=== PATIENT | male | born 1970 | race Caucasian/White ===

== ENCOUNTER 2021-09-29 01:11 | Day surgery (SDC) | payer BC, SELFPAY ==
--- NOTE | 2021-09-28 12:49 | P.PNAN_ITS ---
Anes - Initial Pre Proc Eval Procedure: Operation Date: 09/29/21 09:15 Proposed Procedures p Colonoscopy - Kvng Alvarez MD Date/Time: 09/28/21 12:49 Surgeon: Kvng Alvarez MD Pre Op Diagnosis: Rectal Bleeding Patient Data Age: 51 Gender: M Height: Weight: Allergies Allergy/AdvReac Type Severity Reaction Status Date / Time cephalexin Allergy Unknown Verified 08/10/10 08:16 ciprofloxacin Allergy Unknown Verified 08/10/10 08:15 Penicillins Allergy Unknown Vomiting Verified 06/05/17 15:02 tetracycline Allergy Unknown Verified 08/10/10 08:16 NKDA Allergy Mild Uncoded 11/21/02 17:54 NKFA Allergy Mild Uncoded 11/21/02 17:54 Home Medications Medication Instructions Recorded Confirmed Type amitriptyline 25 mg tablet 25 mg PO QHS #90 tabs 09/23/20 Rx hydrochlorothiazide 12.5 mg capsule 12.5 mg PO DAILY 08/24/21 History sodium sul 1.479 gram-potas ch See Rx Instructions PO PER PKG DIR 08/25/21 Rx 0.188 gram-magnes sul 0.225 gram #24 tabs tablet (Sutab) Patient hx anesthesia problems: none Family hx anesthesia problems: none Results Review: All pre-operative results and documents have been reviewed as part of the pre- operative evaluation. [facility] Past Medical History Medical History (Updated 09/28/21 @ 12:50 by William Walker MD) BMI 27.0-27.9,adult HTN (hypertension) Family History Family History Mother Family history of lung disease Father Patient's father is Acute myocardial infarction Other Family history of throat cancer Social History Social History Smoking status: Never smoker Alcohol intake: never Living arrangements: with family Anes - Eval Final PreProcedure Day of Procedure 09/28/21 12:49 Patient weight: overweight Heart: regular rate and rhythm Lungs: clear to auscultation and normal air movement Airway: Mallampati scale class II Neurological: alert and oriented Last oral intake: >/= 8 hours ASA classification: II Emergent: no Anesthetic plan: proceed Anesthesia type and monitoring: general GIVS Results Review: All pre-operative results and documents have been reviewed as part of the pre- operative evaluation. Informed Consent: The patient's anesthetic plan and its attendant risks and benefits were discussed with the patient/family/POA. Questions were solicited and answers provided to the satisfaction of the patient/family/POA.
[2021-09-29 07:58] VITALS: BP 115/93; PULSE 91; RESP 18; TEMP 36.6; O2SAT 99
[2021-09-29] MEDS: LACTATED RINGERS 1,000 ML 150 ML IV CONT (08:07)
--- NOTE | 2021-09-29 08:25 | P.HP_ITS ---
H&P: HPI History of Present Illness Date/Time: 09/29/21 08:25 Chief Complaint: Rectal bleeding Narrative: this is a 51-year-old white male patient presents for colonoscopy. Patient has intermittent bright red blood per rectum attributed to hemorrhoids. Previous colonoscopy has shown internal hemorrhoids. Patient reports this occurs intermittently. He denies significant pain. He is considering therapy for this. Past medical history is significant for irritable bowel syndrome. He is obtain fairly good response to amitriptyline 25mg at bedtime. Patient presents today for colonoscopy to assess rectal bleeding. Review of Systems Review of Systems: Review of systems noncontributory. [facility] Past Medical History Medical History (Updated 09/28/21 @ 12:50 by William Walker MD) BMI 27.0-27.9,adult HTN (hypertension) Family History Family History Mother Family history of lung disease Father Patient's father is Acute myocardial infarction Other Family history of throat cancer Social History Social History Smoking status: Never smoker Alcohol intake: never Living arrangements: with family Meds Home Medications and Allergies Home Medications Medication Instructions Recorded Confirmed Type amitriptyline 25 mg tablet 25 mg PO QHS #90 tabs 09/23/20 Rx hydrochlorothiazide 12.5 mg capsule 12.5 mg PO DAILY 08/24/21 History sodium sul 1.479 gram-potas ch See Rx Instructions PO PER PKG DIR 08/25/21 Rx 0.188 gram-magnes sul 0.225 gram #24 tabs tablet (Sutab) Allergies Allergy/AdvReac Type Severity Reaction Status Date / Time cephalexin Allergy Unknown Verified 08/10/10 08:16 ciprofloxacin Allergy Unknown Verified 08/10/10 08:15 Penicillins Allergy Unknown Vomiting Verified 06/05/17 15:02 tetracycline Allergy Unknown Verified 08/10/10 08:16 NKDA Allergy Mild Uncoded 11/21/02 17:54 NKFA Allergy Mild Uncoded 11/21/02 17:54 Vital Signs Vital Signs - 24 hr 09/29/21 07:58 Temperature 97.8 F Pulse Rate 91 Respiratory Rate 18 Blood Pressure 115/93 H Pulse Oximetry 99 Oxygen Delivery Room Air Exam Narrative: Physical exam reveals patient to be alert. Vital signs stable. HEENT exam is unremarkable. Patient is anicteric. Lungs are clear to auscultation and percussion. Heart is without murmur or extra sounds. Abdominal exam bowel sounds are present soft nontender with no organomegaly. Digital external rectal exam is normal. Assessment and Plan Assessment and plan (1) Rectal bleeding: Code(s): K62.5 - Hemorrhage of anus and rectum Status: Acute Assessment and Plan: Rectal bleeding identified. Plan is for colonoscopy to assess more thoroughly. High-fiber diet is advised. Patient does have a history of hemorrhoids suggesting this is most likely etiology. Consider hemorrhoid banding if this persist electively in the office.
[2021-09-29 09:36] VITALS: BP 105/75; PULSE 72; RESP 16; O2SAT 98
[2021-09-29 09:46] VITALS: BP 117/85; PULSE 75; RESP 17; O2SAT 99
[2021-09-29 09:56] VITALS: BP 119/87; PULSE 70; RESP 16; O2SAT 99
== END 2021-09-29 10:01 | disposition home or self-care (01) ==
PROVIDERS: Visit Provider Internal Medicine Gastroenterology
PROC: 0DJD8ZZ Inspection of Lower Intestinal Tract, Via Natural or Artificial Opening Endoscopic (ICD-10-PCS; CPT 45378; principal; 2021-09-29 09:15)
DX: K62.5 Hemorrhage of anus and rectum (principal); D12.2 Benign neoplasm of ascending colon; K64.8 Other hemorrhoids; I10 Essential (primary) hypertension
CPT/HCPCS: 45385; 88305; J2704; J7120

== ENCOUNTER 2024-09-04 08:00 | Outpatient (CLI) | payer BC, SELFPAY ==
--- NOTE | ~2024-09-04 | CT_ITS ---
CT of the Abdomen and Pelvis: Indication: Rectal hemorrhage Technique: 2.5 mm axial scans were obtained through the abdomen and pelvis following intravenous adm inistration of 100 cc of Omnipaque 350. Dose reduction technique was used on this scan by utilizing a utomated exposure control and iterative reconstruction technique. The dose-length product (DLP) was 7 22.86 mGy-cm. Findings: Scans through the lung bases are unremarkable. The liver, spleen, pancreas, gallbladder, adrenals and kidneys are within normal limits. No evidence of aortic aneurysm. No lymphadenopathy. No bowel obstruction or bowel wall thickening. There is no evidence to suggest acute appendicitis. Th ere is minimal haziness in the mesentery with shotty lymph nodes, compatible with mesenteric pannicul itis. Images through the pelvis were performed. Urinary bladder unremarkable. Prostate gland mildly enlarge d. No ascites. Impression: Mild mesenteric panniculitis. Mildly enlarged prostate gland. Reviewed, dictated and finalized at [facility]. Impression: Mild mesenteric panniculitis. Mildly enlarged prostate gland.
--- OUTSIDE RECORDS SUMMARY | 2024-09-04 08:05 | XMS_ITS | Clinical Summary ---
Author Organization [facility] ([place], [place]) Address [address] [place] [address] Care Team Providers Care Civil Cadd Technician Name Role Phone Willie Fox MD Unavailable [phone] Willie Savage DO Primary Care Provider + Allergies Active Allergy Reactions Criticality Noted Date Comments Penicillin V Stomach upset Low 05/23/2019 Penicillins Vomiting Low 06/18/2024 Tetracycline Stomach upset Low 05/23/2019 Medications amitriptyline (ELAVIL) 25 mg tablet Take 1 tablet (25 mg total) by mouth nightly 0 Active fluticasone propionate (FLONASE) 50 mcg/actuation nasal spray Administer 1 spray into affected nostril(s) daily 0 Active azelastine 205.5 mcg (0.15 %) spray,non-aeros ol 205.5 mcg 2 (two) times a day Active pantoprazole DR (PROTONIX) 40 mg EC tabletIndicatio ns:Laryngophary ngeal reflux (LPR) Take 1 tablet (40 mg total) by mouth 2 (two) times a day before breakfast and dinner 60 tablet 3 5 Active losartan (COZAAR) 25 mg tablet Take 1 tablet (25 mg total) by mouth daily 30 tablet 1 5 09/06/19 25 Active atorvastatin (LIPITOR) 40 mg tablet Take 1 tablet (40 mg total) by mouth daily 30 tablet 1 5 09/07/19 25 Active Active Problems Problem Noted Date Diagnosed Date Chest pain 07/07/2024 Hypertension 07/07/2024 Other forms of dyspnea 07/07/2024 Exercise-induced angina 06/18/2024 Laryngopharyngeal reflux (LPR) 06/15/2024 Wheezing 06/15/2024 Dizziness and giddiness 10/15/2019 Encounters Date Type Department Care Team Description 08/01/2024 6:51 AM CDT - 08/01/2024 11:59 PM CDT Hospital Encounter [facility] Respiratory Therapy [address] [place] [id number] Other forms of dyspnea Discharge Disposition: Discharge to home or self care 08/01/2024 6:51 AM CDT - 08/01/2024 11:59 PM CDT Hospital Encounter [facility] CT [address] [place] [address] Other forms of dyspnea Discharge Disposition: Discharge to home or self care 07/28/2024 8:45 AM CDT Office Visit [facility] Otolaryngology [address] [place] [address] Sudhir Bernardo II, MD Laryngopharyngeal reflux (LPR) (Primary Dx); Wheezing; Dizziness and giddiness 07/21/2024 Telephone [facility] Cardiology [address] [place] [address] [address] [place] [phone] Jamila Gutierrez MD 07/07/2024 10:45 AM CDT - 07/07/2024 11:40 AM CDT Surgery [facility] Cardiac Lathing Supervisor [address] [place] [id number] Jamila Gutierrez MD LEFT HEART CATHETERIZATION WITH CORONARY ANGIOGRAPHY AND WITH OR WITHOUT LEFT VENTRICULOGRAM [id number] 07/07/2024 12:44 AM CDT - 07/07/2024 3:16 PM CDT Hospital Encounter [facility] 5 Med Surg [address] [place] [address] Dallas Hernandez DO Winston, Clifton Braswell MD TelemaqueIftikhar MD Chest pain, unspecified type (Primary Dx); Hypertension, unspecified type Discharge Disposition: Discharge to home or self care 06/17/2024 Telephone [facility] Cardiology [address] [facility] [address] [place] [address] Denny Flores MD [facility] scheduling 06/12/2024 9:30 AM CDT Office Visit [facility] Otolaryngology [address] [place] [phone] Sudhir Bernardo II, MD Laryngopharyngeal reflux (LPR) (Primary Dx); Wheezing from Last 3 Months Surgical History Surgery Date Site/Laterality Comments TONSILLECTOMY CARDIAC CATHETERIZATION 07/07/2024 N/A Procedure: LEFT HEART CATHETERIZATION WITH CORONARY ANGIOGRAPHY AND WITH OR WITHOUT LEFT VENTRICULOGRAM [id number]; Surgeon: Jamila Gutierrez MD; 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; Service: Cardiovascular; Laterality: N/A; Medical History Medical History Date Comments Allergic rhinitis Hypertension Sinusitis IBS (irritable bowel syndrome) Laryngopharyngeal reflux Family History Medical History Relation Name Comments Heart disease Father Cancer Maternal Grandfather Cancer Maternal Grandmother Sarcoidosis Mother Cancer Other Relation Name Status Comments Father Maternal Grandfather Maternal Grandmother Mother Other Social History Tobacco Use Types Packs/Day Years Used Date Smoking Tobacco: Never Smokeless Tobacco: Never AUDIT-C Answer Date Recorded Q1: How often do you have a drink containing alcohol? Never 07/07/2024 Q2: How many drinks containi ng alcohol do you have on a typical day when you are drinking? Patient does not drink Q3: How often do you have si x or more drinks on one occasion? Never 07/07/2024 Personal Safety Answer Date Recorded Have you ever been in or are you currently in a harmful physical or emotional relationship or is someone making you feel afraid or unsafe? 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 Gender Identity Not on file Sexual Orientation Not on file Obstetrics History Last Filed Vital Signs Vital Sign Reading Time Taken Comments Blood Pressure 110/83 07/07/2024 12:15 PM CDT Pulse 70 07/07/2024 12:15 PM CDT Temperature 36.4 C (97.5 F) 07/07/2024 7:07 AM CDT Respiratory Rate 17 07/28/2024 8:38 AM CDT Oxygen Saturation 100% 07/07/2024 12:15 PM CDT Inhaled Oxygen Concentration - - Weight 97.5 kg (215 lb) 07/28/2024 8:38 AM CDT Height 182.9 cm (6') 07/28/2024 8:38 AM CDT Body Mass Index 29.16 07/28/2024 8:38 AM CDT Plan of Treatment Health Maintenance Due Date Last Done Comments Colon Cancer Screening-Colonoscopy 1972 Depression Screening 1972 Hepatitis C Screening 1972 Prostate Cancer Screening-PSA 1972 DTaP/Tdap/Td Vaccine (1 - Tdap) 09/25/1983 Hepatitis B Screening 1990 Regular Well Visit/Exam 18-64 1990 Zoster Vaccine (1 of 2) 2022 Influenza Vaccine (Season Ended) 2024 Pneumococcal vaccine <65 Aged Out No longer eligible based on patient's age to complete this topic Procedures Procedure Name Priority Date/Time Associated Diagnosis Comments PULMONARY FUNCTION TEST (PFT) Routine 08/01/2024 10:06 AM CDT Other forms of dyspnea CTA CHEST W CONTRAST Schedule Routine, Read Routine (OP Routine) 08/01/2024 7:15 AM CDT Other forms of dyspnea LEFT HEART CATHETERIZATION WITH CORONARY ANGIOGRAPHY AND WITH AND WITHOUT LEFT VENTRICULOGRAM Routine 07/07/2024 11:30 AM CDT Chest pain, unspecified type EGFR Routine 07/07/2024 8:57 AM CDT THYROID FUNCTION CASCADE Routine 07/07/2024 8:57 AM CDT LIPID PANEL Routine 07/07/2024 8:57 AM CDT HEMOGLOBIN A1C Routine 07/07/2024 8:57 AM CDT BASIC METABOLIC PANEL Routine 07/07/2024 8:57 AM CDT TROPONIN T HIGH-SENSITIVITY 6-HOUR Timed 07/07/2024 7:52 AM CDT TROPONIN T HIGH-SENSITIVITY 4-HR Timed 07/07/2024 4:13 AM CDT D-DIMER, QUANTITATIVE STAT 07/07/2024 2:18 AM CDT TROPONIN T HIGH-SENSITIVITY 2-HOUR Timed 07/07/2024 2:18 AM CDT XR CHEST 1 VIEW ED 07/07/2024 12:51 AM CDT EGFR STAT 07/07/2024 12:41 AM CDT DIFFERENTIAL AUTO STAT 07/07/2024 12:41 AM CDT TROPONIN T HIGH-SENSITIVITY SERIES (BASELINE, 2HR, 4HR, 6HR) STAT 07/07/2024 12:41 AM CDT COMPREHENSIVE METABOLIC PANEL STAT 07/07/2024 12:41 AM CDT CBC WITH AUTO DIFFERENTIAL STAT 07/07/2024 12:41 AM CDT ECG 12-LEAD STAT 07/07/2024 12:36 AM CDT from Last 3 Months Results * (ABNORMAL) Pulmonary Function Test - (08/01/2024 10:06 AM CDT) FVC PRE 4.21 4.11 - 6.46 L [facility] FEV1 PRE 3.80 3.20 - 5.00 L [facility] [id number]-VYG 90.44(A) 67.42 - 87.93 % [facility] SOM53-36% PRE 5.48 1.95 - 5.88 L/s [facility] PEF PRE 11.58(A) 7.20 - 11.18 L/s [facility] DLCOc SB 22.60(A) 25.69 - 39.54 ml/(min*mm Hg) [facility] DLCO/VA PRE 3.88 3.19 - 5.47 ml/(min*mm Hg*L) [facility] VA 5.83(A) 7.38 - 7.38 L [facility] TLC PRE 5.85(A) 6.38 - 8.68 L [facility] VC PRE 4.31 4.16 - 6.00 L [facility] IC PRE 3.24(A) 3.72 - 3.72 L [facility] FRC PL PRE 2.61(A) 2.66 - 4.64 L [facility] ERV PRE 1.08(A) 1.36 - 1.36 L [facility] RV PRE 1.53(A) 1.61 - 2.96 L [facility] VTG 2.74 L [facility] RAW PRE 1.17(A) 3.06 - 3.06 cmH2O*s/L [facility] Anatomical Region Laterality Modality PFT 08/01/2024 7:50 AM CDT Narrative 08/01/2024 11:28 AM CDT The study showed good patient effort, acceptable and reproducible. Spirometry showed no airflow limitation. Flow volume loops showed unremarkable study. Lung volume showed mild restrictive defect. ERV was reduced secondary to overweight. Diffusion was mildly reduced indicating mild ventilation/perfusion mismatch. DLCO/VA was within normal limit. Oxygen saturation was 94% on room air. No previous data to compare, clinical correlation is recommended. Electronically signed, Jamie Can MD,FCCP, [facility] Pulmonary, Critical Care and Sleep Medicine us Willie Wei'Neill DO PFT ORDERABLES Final Re sult * CTA Chest W Contrast (08/01/2024 7:15 AM CDT) Anatomical Region Laterality Modality Chest N/A Computed Tomogra phy 08/11/2024 7:23 AM CDT Narrative 08/11/2024 7:27 AM CDT EXAM DESCRIPTION: CTA CHEST W CONTRAST REASON FOR STUDY: DYSPNEA ON EXERTION SOB for 3 mo. upon exertion. Pt reports he had pneumonia 5 mo ago. No sx hx to chest TECHNIQUE: CTA scan of the chest performed without and with intravenous contrast using helical scanning technique with dynamic intravenous contrast injection. Precontrast and arterial phase images of the chest were acquired. Reconstructed coronal and sagittal MPR images reviewed. 3D MIP images rendered on scanning unit and reviewed at time of interpretation. All images stored on PACS. Automated exposure control was used as a dose optimization technique for this examination. CONTRAST TYPE/DOSE: 100mL of IOVERSOL 350 MG IODINE/ML INTRAVENOUS SYRINGE injected via intravenous COMPARISON: None. REFERENCE: Per ACR white paper recommendations, unless otherwise specified no follow-up imaging is recommended for incidental renal and adrenal lesions per consensus recommendations based on imaging criteria. Further lab evaluation could be pursued based on clinical findings. FINDINGS: VASCULATURE: No filling defects within the pulmonary arterial system. There is motion artifact on the examination. The thoracic aorta is nonaneurysmal. There is motion artifact limiting assessment. No evidence of thoracic aortic dissection. There is a three-vessel aortic arch. LUNGS: Central airways are patent. No suspicious pulmonary nodule. There is no focal consolidation or mass. PLEURA: No pleural effusion or pneumothorax. MEDIASTINUM/TOMASZ: No mediastinal or hilar mass. HEART: Heart size normal. No pericardial effusion. AXILLA: There are few small axillary lymph nodes, these are not pathologically enlarged. As an example in the right axilla 1.2 x 0.7 cm (image 43). CHEST WALL: No chest wall mass or subcutaneous emphysema. HARDWARE/LINES/TUBES: None. UPPER ABDOMEN: In the included upper abdomen, few low-density renal lesions, mid right kidney 2.3 cm 10 Hounsfield units, left kidney 2.3 cm and 6 Hounsfield units. Spleen mildly enlarged 13.4 cm. MUSCULOSKELETAL: Bone windows demonstrate no acute or aggressive osseous abnormality. OTHER: No other significant abnormality. IMPRESSION: No evidence of an acute pulmonary embolism or acute cardiopulmonary abnormality. Mild splenomegaly. Low-density renal lesions most likely cysts. THIS IS AN ELECTRONICALLY VERIFIED FINAL REPORT 08/11/2024 7:27 AM - Electronically signed by Zac Bell M.D. CH: JOSÉ MIGUEL Report ID: [id number] Reading Location: [place] [address] Procedure Note Zac Bell Jr., MD - 08/11/2024 EXAM DESCRIPTION: CTA CHEST W CONTRAST REASON FOR STUDY: DYSPNEA ON EXERTION SOB for 3 mo. upon exertion. Pt reports he had pneumonia 5 mo ago. No sxhx to chest TECHNIQUE: CTA scan of the chest performed without and with intravenous contrast using helical scanning technique with dynamic intravenouscontrast injection. Precontrast and arterial phase images of the chest were acquired. Reconstructed coronal and sagittal MPR images reviewed.3D MIP images rendered on scanning unit and reviewed at time ofinterpretation. All images stored on PACS. Automated exposure control was used as a dose optimization technique for this examination. CONTRAST TYPE/DOSE: 100mL of IOVERSOL 350 MG IODINE/ML INTRAVENOUSSYRINGE injected via intravenous COMPARISON: None. REFERENCE: Per ACR white paper recommendations, unless otherwise specifiedno follow-up imaging is recommended for incidental renal and adrenal lesionsper consensus recommendations based on imaging criteria. Further labevaluation could be pursued based on clinical findings. FINDINGS: VASCULATURE: No filling defects within the pulmonary arterial system. There is motion artifact on the examination. The thoracic aortais nonaneurysmal. There is motion artifact limiting assessment. No evidenceof thoracic aortic dissection. There is a three-vessel aortic arch. LUNGS: Central airways are patent. No suspicious pulmonary nodule.There is no focal consolidation or mass. PLEURA: No pleural effusion or pneumothorax. MEDIASTINUM/TOMASZ: No mediastinal or hilar mass. HEART: Heart size normal. No pericardial effusion. AXILLA: There are few small axillary lymph nodes, these are not pathologically enlarged. As an example in the right axilla 1.2 x 0.7 cm (image 43). CHEST WALL: No chest wall mass or subcutaneous emphysema. HARDWARE/LINES/TUBES: None. UPPER ABDOMEN: In the included upper abdomen, few low-density renallesions, mid right kidney 2.3 cm 10 Hounsfield units, left kidney 2.3 cm and 6 Hounsfield units. Spleen mildly enlarged 13.4 cm. MUSCULOSKELETAL: Bone windows demonstrate no acute or aggressive osseous abnormality. OTHER: No other significant abnormality. IMPRESSION: No evidence of an acute pulmonary embolism or acute cardiopulmonary abnormality. Mild splenomegaly. Low-density renal lesions most likely cysts. THIS IS AN ELECTRONICALLY VERIFIED FINAL REPORT 08/11/2024 7:27 AM - Electronically signed by Zac Bell M.D. CH: JOSÉ MIGUEL Report ID: [id number] Reading Location: [place] [address] us Willie Wei'Neill DO IMG CT PROCEDURES Final Result * LEFT HEART CATHETERIZATION WITH CORONARY ANGIOGRAPHY AND WITH AND WITHOUT LEFT VENTRICULOGRAM (07/07/2024 11:30 AM CDT) Anatomical Region Laterality Modality X-Ray Angiograph y Narrative 07/07/2024 11:57 AM CDT Attending: Dr. Pierce Gutierrez MD Indication: Chest pain, elevated risk for CAD Procedure(s): 1. Left heart catheterization 2. Coronary angiography 3. Moderate sedation, 9 min 4. Ultrasound guided Needle Access Consent obtained: YES Timeout: done; correct procedure, patient and site of access. Drug allergies noted. Sedation Sedation was administered under my supervision and RN Range/Harbour in the room with continuous monitoring of patient's vital signs, airway and hemodynamic. Moderate sedation was done using 1 mg versed and 25 mcg fentanyl. Sedation start time 1116and sedation end time 1125 Sedation was tolerated very well by the patient and at the end of the procedure patient was conscious. Access: Site: Right Radial artery Technique: Modified Sildenger technique Sheath size: 5/4 F Glidesheath Coronary angiography: Catheters were advanced over wire under fluoroscopy for selective coronary angiography. Wire was removed and catheter was flushed with saline. Coronary angiogram was recorded in different projections. Catheters removed and sheath flushed. Following catheter used for coronary angiograms: 4F JR/JL Hemodynamic findings: LVEDP: 11 mmHg Arterial pressure: 105/79 mmHg No gradient across AV Angiographic findings: 1. Left main: Bifurcates into LAD and LCX. There was no angiographic significant disease 2. LAD: Normal anatomic course, gives to diagonal branches. There was no angiographic significant disease. 3. LCX: Normal anatomic course, gives to OM branches. There was no angiographic significant disease. 4. RCA: Normal anatomic course, gives to PDA and PLV branches. There was no angiographic significant disease. Dominance: Right Conclusion: No obstructive CAD to explain chest pain, or angina Low-normal LVEDP Closure: closure with wrist compression device Immediate post procedure access site: no hematoma, and distal pulse is unchanged Complications: None Estimated blood loss: minimal Recommendation #. Investigate alternative etiologies of chest pain/noncardiac syndrome # IVF per protocol #. TR band per protocol #. Follow-up in Cardiology clinic The results of procedure were discussed with patient, family, primary hospitalist/referring physician. All questions answered. us Jamila Gutierrez MD CV CARDIAC CATH ME OCEDURES Final Result * eGFR (07/07/2024 8:57 AM CDT) eGFR 62 >=60 mL/min/1. 73 m2 Comment: Interpretive Data Reference Interval Normal >/= 90 mL/min/1.73m2 Mildly decreased* 60 - 89 mL/min/1.73m2 Mildly to moderately decreased 45 - 59 mL/min/1.73m2 Moderately to severely decreased 30 - 44 mL/min/1.73m2 Severely decreased 15 - 29 mL/min/1.73m2 Kidney Failure < 15 mL/min/1.73m2 *Relative to young adult level Estimated glomerular filtration rate is determined by the 2020 CKD-EPI equation recommended by the National Kidney Foundation (A Unifying Approach to GFR Estimation: Recommendations of the NKF-ASK Task Force on Reassessing the Inclusion of Race in Diagnosing Kidney Disease, JASN 2020). The CKD-EPI equation should not be used for patients with unstable renal function and has not been validated in children and those over 70. Current interpretive data was last reviewed 2021. Testing performed by: [facility], [address] [place] [address]., [address] Blood 07/07/2024 8:57 AM CDT 07/07/2024 9:29 AM CDT Iftikhar Fuentes MD LAB BLOOD ORDERABLES Final Result [facility] [address] [facility] [place] [address] * Thyroid Function [place] (07/07/2024 8:57 AM CDT) TSH 3.56 0.30 - 4.20 mcIUnit/mL Comment:Testing performed by : [address] [address] Blood 07/07/2024 8:57 AM CDT 07/07/2024 9:29 AM CDT Iftikhar Fuentes MD LAB BLOOD ORDERABLES Final Result Performing Organization Address City/[facility]/ZIP Co de Phone Number [facility] [address] [place] [address] * (ABNORMAL) Hemoglobin A1c (07/07/2024 8:57 AM CDT) [facility] Hgb A1C 5.8(H) 4.0 - 5.6 % Comment:Testing performed by : [address] [address] Estimated Average Glucose 120 mg/dL [facility] Comment: The ADA recommends reporting an estimated Average Glucose (eAG) with all Hemoglobin A1c results using the equation derived from a study of 507 normal and diabetic adults. Minority populations were underrepresented and children were not included. (Diabetes Care 31:3058-6317, 2008). The eAG is not equivalent to a fasting glucose. Testing performed by: [address] [address] Blood 07/07/2024 8:57 AM CDT 07/07/2024 9:29 AM CDT Iftikhar Fuentes MD LAB BLOOD ORDERABLES Final Result [place] [id number] [facility] [place] [address] * (ABNORMAL) Lipid panel (07/07/2024 8:57 AM CDT) Pathologist [facility] Cholesterol 212(H) 30 - 199 mg/dL Comment: Interpretive Data Ages < or = 19 years Acceptable: <170 mg/dL Borderline high: 170-199 mg/dL High: >or= 200 mg/dL Ages > or = 20 years Desirable: <200 mg/dL Borderline high: 200-239 mg/dL High: >or= 240 mg/dL Literature References: 1. Expert Panel on Integrated Guidelines for Cardiovascular Health and Risk Reduction in Children and Adolescents. Pediatrics 2011;128:S213 2. NCEP Expert Panel. Circulation 2004;110:227 Current Interpretive Data was last revised on 2017. Testing performed by: [address] [address] Triglycerides 200(H) <=149 mg/dL [facility] Comment: Interpretive Data Ages < or = 9 years Acceptable: <75 mg/dL Borderline high: 75-99 mg/dL High: >or= 100 mg/dL Ages 10 to 20 years Acceptable: <90 mg/dL Borderline high: 90-129 mg/dL High: >or= 130 mg/dL Ages > or = 20 years Desirable: <150 mg/dL Borderline high: 150-199 mg/dL High: 200-499 mg/dL Very high: >or= 499 mg/dL Literature References: 1. Expert Panel on Integrated Guidelines for Cardiovascular Health and Risk Reduction in Children and Adolescents. Pediatrics 2011;128:S213 2. NCEP Expert Panel. Circulation 2004;110:227 Current Interpretive Data was last revised on 2017. Testing performed by: [address] [address] HDL 39(L) >=40 mg/dL [facility] Comment: Interpretive Data Ages < or = 19 years Acceptable: >45 mg/dL Borderline low: 40-45 mg/dL Low: <40 mg/dL Ages > or = 20 years Desirable: >or= 60 mg/dL Low: <40 mg/dL Literature References: 1. Expert Panel on Integrated Guidelines for Cardiovascular Health and Risk Reduction in Children and Adolescents. Pediatrics 2011;128:S213 2. NCEP Expert Panel. Circulation 2004;110:227 Current Interpretive Data was last revised on 2017. Testing performed by: [address] [address] LDL, calculated 137(H) <=129 mg/dL [facility] Comment: Interpretive Data Ages < or = 19 years Acceptable: <110 mg/dL Borderline high: 110-129 mg/dL High: >or= 130 mg/dL Ages > or = 20 years Optimal: <100 mg/dL Near optimal: 100-129 mg/dL Borderline high: 130-159 mg/dL High: >160 mg/dL Calculated using the Skyler LDL-C estimating equation. This equation was implemented on 2023. Prior to this date LDL-C was estimated using the Friedewald equation. Literature References: 1. Expert Panel on Integrated Guidelines for Cardiovascular Health and Risk Reduction in Children and Adolescents. Pediatrics 2011;128:S213 2. NCEP Expert Panel. Circulation 2004;110:227 3. Skyler Tineo et al. BINU Cardiol. 2020 July 17;5(5):540-548. doi: 10.1001/jamacardio.2020.0013 Current Interpretive Data was last revised on 2023. Testing performed by: [address] [address] Non-HDL Cholesterol 173 mg/dL [facility] Comment: Interpretive Data Ages < or = 19 years Acceptable: <120 mg/dL Borderline high: 120-144 mg/dL High: >145 mg/dL Ages > or = 20 years When triglycerides are >200 mg/dL, Non-HDL cholesterol is a secondary target of therapy with treatment goals that are 30 mg/dL greater than the LDL cholesterol target. Literature References: 1. Expert Panel on Integrated Guidelines for Cardiovascular Health and Risk Reduction in Children and Adolescents. Pediatrics 2011;128:S213 2. NCEP Expert Panel. Circulation 2004;110:227 Current Interpretive Data was last revised on 2017. Testing performed by: [address] [address] Chol/HDL ratio 5 [facility] Comment:Testing performed by : [address] [address] Blood 07/07/2024 8:57 AM CDT 07/07/2024 9:29 AM CDT Iftikhar Fuentes MD LAB BLOOD ORDERABLES Final Result [facility] [address] [facility] Department [place] [address] * (ABNORMAL) Basic metabolic panel (07/07/2024 8:57 AM CDT) Sodium 140 135 - 145 mmol/L Comment:Testing performed by : [address] [address] Potassium, pl 4.5 3.3 - 4.9 mmol/L [facility] Comment: Hemolyzed; Potassium value may be falsely elevated by as much as 1.0 mmol/L. Suggest redraw and reanalysis. Testing performed by: [address] [address] Chloride 102 97 - 110 mmol/L [facility] Comment:Testing performed by : [address] [address] CO2 28 22 - 32 mmol/L [facility] Comment:Testing performed by : [address] [address] Anion gap 10 2 - 15 mmol/L [facility] Comment:Testing performed by : [address] [address] BUN 20 6 - 25 mg/dL [facility] Comment:Testing performed by : [address] [address] Creatinine 1.37(H) 0.80 - 1.30 mg/dL [facility] Comment:Testing performed by : [address] [address] Glucose 98 70 - 199 mg/dL [facility] Comment: Interpretive Data Fasting glucose >/= 126 mg/dl is diagnostic for diabetes. Fasting is defined as no caloric intake for at least 8 hours. Fasting glucose between 100 mg/dl to 125 mg/dl is diagnostic of prediabetes. In a patient with classic symptoms of hyperglycemia or hyperglycemic crisis, a random glucose >/= 200 mg/dl is diagnostic for diabetes. In the absence of unequivocal hyperglycemia, results should be confirmed by repeat testing. The classification and Diagnosis of Diabetes Diabetes Care 202; 46: S19-S40. Current interpretive data was last revised 2022. Testing performed by: [facility], [address] [place] [address]., [address] Calcium 9.7 8.5 - 10.3 mg/dL ROSENDO Comment:Testing performed by : [address] [address] Blood 07/07/2024 8:57 AM CDT 07/07/2024 9:29 AM CDT Iftikhar Fuentes MD LAB BLOOD ORDERABLES Final Result Performing Organization Address [facility] de Phone Number ROSENDO [address] [facility] [place] [address] * Troponin T high-sensitivity 6-hour (07/07/2024 7:52 AM CDT) Trop T hs <6 <=22 ng/L Comment: Interpretive Data For further hscTnT resources including the diagnostic algorithm and an aid in interpretation, copy and paste this link: https://nrl.testcatalog.org/show/hsTrop Current Interpretive Data last revised 2020. Testing performed by: [address] [address] Trop T hs delta See Comment ng/L ROSENDO COTA Comment: Inappropriate collection time to report a delta. Testing performed by: [address] [address] Trop T hs pct delta See Comment % ROSENDO Comment: Inappropriate collection time to report a delta. Testing performed by: [address] [address] Trop T hs interp See Comment ROSENDO Comment: Inappropriate collection time to report a delta. Testing performed by: [address] [address] Blood 07/07/2024 7:52 AM CDT 07/07/2024 9:29 AM CDT us Dallas Hernandez DO LAB BLOOD ORDERABLES Final Res ult Performing Organization Address City/[facility] Co de Phone Number ROSENDO [address] [facility] [place] [address] * Troponin T high-sensitivity 4-hour (07/07/2024 4:13 AM CDT) Trop T hs <6 <=22 ng/L Comment: Interpretive Data For further hscTnT resources including the diagnostic algorithm and an aid in interpretation, copy and paste this link: [email or web address].[employer]org/show/hsTrop Current Interpretive Data last revised 2020. Testing performed by: [address] [address] Trop T hs delta 0 ng/L ROSENDO COTA Comment:Testing performed by : [address] [address] Trop T hs interp Insignificant ROSENDO Comment:Testing performed by : [address] [address] Blood 07/07/2024 4:13 AM CDT 07/07/2024 4:26 AM CDT us Dallas Hernandez DO LAB BLOOD ORDERABLES Final Res ult ROSENDO [facility] [place] [address] * Troponin T high-sensitivity 2-hour (07/07/2024 2:18 AM CDT) Trop T hs <6 <=22 ng/L Comment: Interpretive Data For further hscTnT resources including the diagnostic algorithm and an aid in interpretation, copy and paste this link: https://nrl.[employer]org/show/hsTrop Current Interpretive Data last revised 2020. Testing performed by: [address] [address] Trop T hs delta 0 ng/L ROSENDO COTA Comment:Testing performed by : [address] [address] Trop T hs interp Insignificant ROSENDO Comment:Testing performed by : [address] [address] Blood 07/07/2024 2:18 AM CDT 07/07/2024 2:22 AM CDT Dallas Hernandez Convore LAB BLOOD ORDERABLES Final Res ult Performing Organization Address [facility] Co de Phone Number ROSENDO [address] [place] [address] * D-dimer, quantitative (07/07/2024 2:18 AM CDT) D-Dimer <270 <=499 ng/mL FEU Comment: Interpretive data FDA approved the D-dimer, in conjunction with a low or moderate pretest probability score, to exclude venous thromboembolic events (VTE) (PE and DVT) in outpatients when the D-dimer result is < 500 ng/ml FEU. Evidence supports using an age-adjusted D-dimer cut-off for outpatients older than 50 (age x 10) to improve specificity without sacrificing sensitivity. Example: age 68, VTE cut-off 680 ng/ml FEU. References; Schoutshreyas HT et al. Brit Med J. 2013;346:f2492. Kimi et al. Annals Int Med. 2015;163:701-11. Current interpretive data was last revised on 2019. Testing performed by: [address] [address] Blood 07/07/2024 2:18 AM CDT 07/07/2024 2:22 AM CDT Dallas Cenzickimo DO LAB BLOOD ORDERABLES Final Res ult Performing Organization Address City/[facility]/ZIP Co de Phone Number ROSENDO [address] [place] [address] * XR Chest 1 Vw Portable (if patient condition/safety warrant portable) (07/07/2024 12:51 AM CDT) Anatomical Region Laterality Modality Body, Chest N/A Computed Radiogr aphy 07/07/2024 1:11 AM CDT Narrative 07/07/2024 1:11 AM CDT EXAM DESCRIPTION: XR CHEST 1 VIEW REASON FOR STUDY: chest pain Pt ambulates to triage with c/o left sided chest pain radiating into left arm and up into left jaw and neck with sob, dizziness and sweating. Pt had recent echo, scheduled for heart cath Sunday. 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 Pt states his father was 53 and grandfather was 49 [place]. TECHNIQUE: 1 radiographic view(s) of the chest. COMPARISON: None FINDINGS: LUNGS: No focal opacity, pleural effusion, or pneumothorax. HEART/MEDIASTINUM: Cardiac silhouette normal in size. Mediastinal and hilar contours appear normal. LINES/TUBES: None. BONES: No acute osseous abnormality. IMPRESSION: No acute cardiopulmonary abnormality. THIS IS AN ELECTRONICALLY VERIFIED FINAL REPORT 07/07/2024 1:11 AM - Electronically signed by Taran Manzo M.D. KT: HOLGER Report ID: [id number] Reading Location: [id number] Procedure Note Taran Manzo MD - 07/07/2024 EXAM DESCRIPTION: XR CHEST 1 VIEW REASON FOR STUDY: chest pain Pt ambulates to triage with c/o left sided chest pain radiating into leftarm and up into left jaw and neck with sob, dizziness and sweating. Pt hadrecent echo, scheduled for heart cath Sunday. 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 Pt states his father was 53 and grandfather was 49 when of [place]. TECHNIQUE: 1 radiographic view(s) of the chest. COMPARISON: None FINDINGS: LUNGS: No focal opacity, pleural effusion, or pneumothorax. HEART/MEDIASTINUM: Cardiac silhouette normal in size. Mediastinal andhilar contours appear normal. LINES/TUBES: None. BONES: No acute osseous abnormality. IMPRESSION: No acute cardiopulmonary abnormality. THIS IS AN ELECTRONICALLY VERIFIED FINAL REPORT 07/07/2024 1:11 AM - Electronically signed by Taran Manzo M.D. KT: HOLGER Report ID: [id number] Reading Location: [id number] us Dallas Hernandez DO IMG XR PROCEDURES Final Result * Troponin T high-sensitivity series (baseline, 2hr, 4hr, 6hr) (07/07/2024 12:41 AM CDT) Trop T hs <6 <=22 ng/L Comment: Interpretive Data For further hscTnT resources including the diagnostic algorithm and an aid in interpretation, copy and paste this link: https://nrl.testcatalog.org/show/hsTrop Current Interpretive Data last revised 2020. Testing performed by: [facility], [address] [place] [address]., [address] Blood 07/07/2024 12:4 1 AM CDT 07/07/2024 1:04 AM CDT Dallas Hernandez DO LAB BLOOD ORDERABLES Final Res ult ROSENDO [address] [facility] [place] [address] * (ABNORMAL) eGFR (07/07/2024 12:41 AM CDT) eGFR 58(L) >=60 mL/min/1. 73 m2 Comment: Interpretive Data Reference Interval Normal >/= 90 mL/min/1.73m2 Mildly decreased* 60 - 89 mL/min/1.73m2 Mildly to moderately decreased 45 - 59 mL/min/1.73m2 Moderately to severely decreased 30 - 44 mL/min/1.73m2 Severely decreased 15 - 29 mL/min/1.73m2 Kidney Failure < 15 mL/min/1.73m2 *Relative to young adult level Estimated glomerular filtration rate is determined by the 2020 CKD-EPI equation recommended by the National Kidney Foundation (A Unifying Approach to GFR Estimation: Recommendations of the NKF-ASK Task Force on Reassessing the Inclusion of Race in Diagnosing Kidney Disease, JASN 2020). The CKD-EPI equation should not be used for patients with unstable renal function and has not been validated in children and those over 70. Current interpretive data was last reviewed 2021. Testing performed by: [address] [address] Blood 07/07/2024 12:4 1 AM CDT 07/07/2024 1:04 AM CDT us Dallas Hernandez DO LAB BLOOD ORDERABLES Final Res ult [facility] [address] [facility] [place] [address] * (ABNORMAL) Differential, auto (07/07/2024 12:41 AM CDT) Neutrophil abs 4.39 1.50 - 6.50 K/cumm Comment:Testing performed by : [address] [address] Imm gran abs 0.02 0.00 - 0.10 K/cumm ROSENDO Comment:Testing performed by : [address] [address] Lymphocyte abs 3.36(H) 0.80 - 3.30 K/cumm ROSENDO Comment:Testing performed by : [address] [address] Monocyte abs 0.70 0.20 - 0.80 K/cumm ROSENDO Comment:Testing performed by : [address] [address] Eosinophil abs 0.19 0.00 - 0.50 K/cumm ROSENDO Comment:Testing performed by : [address] [address] Basophil abs 0.09 0.00 - 0.10 K/cumm ROSENDO Comment:Testing performed by : [address] [address] Neutrophil pct 50.2 % ROSENDO Comment: Interpretive Data Percent cell count reference ranges are not reported, since discordance with absolute values may lead to misinterpretation of CBC data. Current Interpretive Data was last revised on 2017. Testing performed by: [address] [address] Imm gran pct 0.2 % [facility] Comment: Interpretive Data Percent cell count reference ranges are not reported, since discordance with absolute values may lead to misinterpretation of CBC data. Current Interpretive Data was last revised on 2017. Testing performed by: [address] [address] Lymphocyte pct 38.4 % [facility] Comment: Interpretive Data Percent cell count reference ranges are not reported, since discordance with absolute values may lead to misinterpretation of CBC data. Current Interpretive Data was last revised on 2017. Testing performed by: [address] [address] Monocyte pct 8.0 % [facility] Comment: Interpretive Data Percent cell count reference ranges are not reported, since discordance with absolute values may lead to misinterpretation of CBC data. Current Interpretive Data was last revised on 2017. Testing performed by: [address] [address] Eosinophil pct 2.2 % [facility] Comment: Interpretive Data Percent cell count reference ranges are not reported, since discordance with absolute values may lead to misinterpretation of CBC data. Current Interpretive Data was last revised on 2017. Testing performed by: [address] [address] Basophil pct 1.0 % [facility] Comment: Interpretive Data Percent cell count reference ranges are not reported, since discordance with absolute values may lead to misinterpretation of CBC data. Current Interpretive Data was last revised on 2017. Testing performed by: [address] [address] Blood 07/07/2024 12:4 1 AM CDT 07/07/2024 1:04 AM CDT us Dallas Hernandez DO LAB BLOOD ORDERABLES Final Res ult ROSENDO [address] [facility] [place] [address] * (ABNORMAL) CBC with auto differential (07/07/2024 12:41 AM CDT) [facility] WBC 8.75 3.80 - 9.90 K/cumm Comment:Testing performed by : [address], [address] Hgb 13.6 13.0 - 17.5 g/dL ROSENDO Comment:Testing performed by : [address], [address] Hct 42.3 38.9 - 50.3 % ROSENDO Comment:Testing performed by : [address], [address] Plt 359 150 - 400 K/cumm ROSENDO Comment:Testing performed by : [address], [address] MPV 11.3 9.1 - 12.3 fL ROSENDO Comment:Testing performed by : [address], [address] RBC 4.92 4.30 - 5.80 M/cumm ROSENDO Comment:Testing performed by : [address], [address] MCV 86.0 81.3 - 96.4 fL ROS[facility]O Comment:Testing performed by : [address], [address] MCH 27.6 27.1 - 33.3 pg ROSENDO Comment:Testing performed by : [address], [address] MCHC 32.2(L) 32.3 - 35.7 g/dL ROSENDO Comment:Testing performed by : [address], [address] RDW CV 13.1 11.1 - 14.9 % ROSENDO Comment:Testing performed by : [address], [address] RDW SD 39.9 35.7 - 48.1 fL ROSENDO Comment:Testing performed by : [address], [address] NRBC abs 0.00 0.00 - 0.01 K/cumm ROSENDO Comment:Testing performed by : [address] [address] Blood Venous blood specimen / Unknown 07/07/2024 12:41 AM CDT 07/07/2024 1:04 AM CDT us Dallas Mary LYONS LAB BLOOD ORDERABLES Final Res ult ROS[facility]O [address] [facility] [place] [address] * (ABNORMAL) Comprehensive metabolic panel (07/07/2024 12:41 AM CDT) Sodium 140 135 - 145 mmol/L Comment:Testing performed by : [address] [address] Potassium, pl 3.7 3.3 - 4.9 mmol/L ROSENDO Comment:Testing performed by : [address] [address] Chloride 101 97 - 110 mmol/L ROSENDO Comment:Testing performed by : [address] [address] CO2 30 22 - 32 mmol/L ROSENDO Comment:Testing performed by : [address] [address] Anion gap 9 2 - 15 mmol/L ROS[facility]O Comment:Testing performed by : [address] [address] BUN 18 6 - 25 mg/dL ROS[facility]O Comment:Testing performed by : [address] [address] Creatinine 1.45(H) 0.80 - 1.30 mg/dL ROS[facility]O Comment:Testing performed by : [address] [address] Glucose 114 70 - 199 mg/dL ROSENDO Comment: Interpretive Data Fasting glucose >/= 126 mg/dl is diagnostic for diabetes. Fasting is defined as no caloric intake for at least 8 hours. Fasting glucose between 100 mg/dl to 125 mg/dl is diagnostic of prediabetes. In a patient with classic symptoms of hyperglycemia or hyperglycemic crisis, a random glucose >/= 200 mg/dl is diagnostic for diabetes. In the absence of unequivocal hyperglycemia, results should be confirmed by repeat testing. The classification and Diagnosis of Diabetes Diabetes Care 202; 46: S19-S40. Current interpretive data was last revised 2022. Testing performed by: [facility], [address] [place] [address]., [address] Calcium 9.7 8.5 - 10.3 mg/dL ROSENDO Comment:Testing performed by : [address] [address] Bilirubin, total 0.3 0.1 - 1.2 mg/dL ROSENDO Comment:Testing performed by : [address] [address] Protein, pl 7.6 6.5 - 8.5 g/dL ROS[facility]O Comment:Testing performed by : [address] [address] Albumin 4.5 3.5 - 5.0 g/dL RSOENDO Comment:Testing performed by : [address] [address] Alk phos 100 40 - 130 Units/L ROS[facility]O Comment:Testing performed by : [address] [address] ALT 27 7 - 55 Units/L ROS[facility]O Comment:Testing performed by : [address] [address] AST 27 10 - 50 Units/L [facility]:Testing performed by : [address] [address] Blood 07/07/2024 12:4 1 AM CDT 07/07/2024 1:04 AM CDT us Dallsa Hernandez DO LAB BLOOD ORDERABLES Final Res ult ROSENDO COTA [address] [facility] [place] [address] * ECG 12 lead (07/07/2024 12:36 AM CDT) Ventricular Rate EKG/Min 75 BPM [facility] Atrial Rate 75 BPM [facility] ME-Interval (MSEC) 160 ms [facility] QRS-Interval (MSEC) 92 ms [facility] QT-Interval (MSEC) 378 ms [facility] QTc 422 ms [facility] P [place] 23 degrees [facility] R [place] -20 degrees [facility] T [place] 17 degrees [facility] Diagnosis Normal sinus rhythm Normal ECG No previous ECGs available Confirmed by SULTAN TRAN M.D. ([id number]) on 07/07/2024 2:50:23 PM [facility] 07/07/2024 12:3 6 AM CDT 07/07/2024 2:50 PM CDT Dallas Hernandez DO ECG ORDERABLES Final Result [facility] from Last 3 Months [place] [employer] [place] [employer] [place] [facility] Advance Directives For more information, please contact: [phone] * Full Code (Latest Code Status on File) Date Activated Date Inactivated Comments 07/07/2024 2:29 PM 07/07/2024 7:16 PM * Full Code Date Activated Date Inactivated Comments 07/07/2024 4:58 AM 07/07/2024 2:29 PM Care Teams Civil Cadd Technician Relationship Specialty Start Date End Date Willie Savage DO [address] [address] PCP - General Family Medicine 07/14/24 Willie Fox MD [address] [place] [address] Family Medicine 06/26/24
--- OUTSIDE RECORDS SUMMARY | 2024-09-04 08:05 | XMS_ITS | Referral Summary ---
Author Organization [facility] Address [address] [place] [address] Care Team Providers Care Rcis Name Role Phone Willie Fox MD Unavailable [phone] Willie Savage DO Primary Care Provider + Encounters Date Type Department Care Team Description 08/01/2024 6:51 AM CDT - 08/01/2024 11:59 PM CDT Hospital Encounter [facility] [place] [address] [place] [address] Other forms of dyspnea Discharge Disposition: Discharge to home or self care 08/01/2024 6:51 AM CDT - 08/01/2024 11:59 PM CDT Hospital Encounter [facility] Respiratory Therapy [address] [place] [address] Other forms of dyspnea Discharge Disposition: Discharge to home or self care 07/28/2024 8:45 AM CDT Office Visit [facility] Otolaryngology [address] [place] [address] Sudhir Bernardo II, MD Laryngopharyngeal reflux (LPR) (Primary Dx); Wheezing; Dizziness and giddiness 07/21/2024 Telephone [facility] Cardiology [address] [facility] [address] [place] [address] Jamila Gutierrez MD 07/07/2024 10:45 AM CDT - 07/07/2024 11:40 AM CDT Surgery [facility] 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 [address] [place] [id number] Jamila Gutierrez MD LEFT HEART CATHETERIZATION WITH CORONARY ANGIOGRAPHY AND WITH OR WITHOUT LEFT VENTRICULOGRAM [id number] 07/07/2024 12:44 AM CDT - 07/07/2024 3:16 PM CDT Hospital Encounter [facility] [address] [place] [address] Dallas Hernandez DO Winston, Jared Todd, MD Telemaque, Iftikhar Jensen MD Chest pain, unspecified type (Primary Dx); Hypertension, unspecified type Discharge Disposition: Discharge to home or self care 06/17/2024 Telephone [facility] Cardiology [address] [place] [address] [address] [place] [address] Denny Flores MD [facility] scheduling 06/12/2024 9:30 AM CDT Office Visit [facility] Otolaryngology [address] [place] [address] Sudhir Bernardo II, MD Laryngopharyngeal reflux (LPR) (Primary Dx); Wheezing from Last 3 Months Allergies Active Allergy Reactions Criticality Noted Date [...] before breakfast and dinner 60 tablet 3 Active losartan (COZAAR) 25 mg tablet Take 1 tablet (25 mg total) by mouth daily 30 tablet 1 5 09/06/19 Active atorvastatin (LIPITOR) 40 mg tablet Take 1 tablet (40 mg total) by mouth daily 30 tablet 1 5 09/07/19 25 Active Active Problems Problem Noted Date Diagnosed Date Chest pain 07/07/2024 Hypertension 07/07/2024 Other forms of dyspnea 07/07/2024 Exercise-induced angina 06/18/2024 Laryngopharyngeal reflux (LPR) 06/15/2024 Wheezing 06/15/2024 Dizziness and giddiness 10/15/2019 Social History Tobacco Use Types Packs/Day Years [...] on file 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 Gender Identity Not on file Sexual Orientation Not on file Last Filed Vital Signs Vital Sign Reading [...] 07/28/2024 8:38 AM CDT Plan of Treatment Not on file Procedures Procedure Name Priority Date/Time Associated Diagnosis [...] FVC PRE 4.21 4.11 - 6.46 L [facility] FEV1 PRE 3.80 3.20 - 5.00 L [facility] [id number] 90.44(A) 67.42 - 87.93 % [facility] TRB18-12% PRE 5.48 1.95 - 5.88 L/s [facility] PEF PRE 11.58(A) 7.20 - 11.18 L/s [facility] DLCOc SB 22.60(A) 25.69 - 39.54 ml/(min*mm Hg) [facility] DLCO/VA PRE 3.88 3.19 - 5.47 ml/(min*mm Hg*L) [facility] VA 5.83(A) 7.38 - 7.38 L [facility] TLC PRE 5.85(A) 6.38 - 8.68 L [facility] VC PRE 4.31 4.16 - 6.00 L [facility] IC PRE 3.24(A) 3.72 - 3.72 L [facility] FRC PL PRE 2.61(A) 2.66 - 4.64 L [facility] ERV PRE 1.08(A) 1.36 - 1.36 L [facility] RV PRE 1.53(A) 1.61 - 2.96 L [facility] VTG 2.74 L [facility] RAW PRE 1.17(A) 3.06 - 3.06 cmH2O*s/L [facility] Anatomical Region Laterality Modality PFT 08/01/2024 7:50 [...] correlation is recommended. Electronically signed, Jamie Can MD,[facility] Pulmonary, Critical Care and Sleep Medicine us Willie Turpindaniel Wei[place] DO PFT ORDERABLES Final Re sult * [...] Electronically signed by Zac Bell M.D. CH: Report ID: [id number] Reading Location: [id number] Procedure Note Zac Bell Jr., MD - [...] Bell M.D. CH: JOSÉ MIGUEL Report ID: [id number] Reading Location: [place] [address] Willie Savage DO IMG CT PROCEDURES Final Result * [...] Modified Sildenger technique Sheath size: 5/4 F Glidesaloomath Coronary angiography: Catheters were advanced over wire [...] us Jamila Gutierrez MD CV CARDIAC CATH FL OCEDURES Final Result * eGFR (07/07/2024 8:57 [...] was last reviewed 2021. Testing performed by: [address] [address] Blood 07/07/2024 8:57 AM CDT 07/07/2024 9:29 AM CDT Iftikhar Fuentes MD LAB BLOOD ORDERABLES Final Result Performing Organization Address City/[facility]/ZIP Co de Phone Number [place] [address] [facility] [place] [employer] [place] [address] * Thyroid Function [place] (07/07/2024 8:57 AM CDT) TSH 3.56 0.30 - 4.20 mcIUnit/mL Comment:Testing performed by : [address] [address] Blood 07/07/2024 8:57 AM CDT 07/07/2024 9:29 AM CDT Iftikhar Fuentes MD LAB BLOOD ORDERABLES Final Result [place] 829[address] [facility] [employer] [place] [address] * (ABNORMAL) Hemoglobin A1c (07/07/2024 8:57 AM CDT) Hgb A1C 5.8(H) 4.0 - 5.6 % Comment:Testing performed by : [address] [address] Estimated Average Glucose 120 mg/dL [facility] Comment: The ADA recommends reporting an estimated Average Glucose (eAG) with all Hemoglobin A1c results using the equation derived from a study of 507 normal and diabetic adults. Minority populations were underrepresented and children were not included. (Diabetes Care 31:3556-2348, 2008). The eAG is not equivalent to a fasting glucose. Testing performed by: [facility], [address] [place] [address]., [address] Blood 07/07/2024 8:57 AM CDT 07/07/2024 9:29 AM CDT us Iftikhar Fuentes MD LAB BLOOD ORDERABLES Final Result [facility] [address] [facility] [place] [address] * (ABNORMAL) Lipid panel (07/07/2024 8:57 AM CDT) Cholesterol 212(H) 30 - 199 mg/dL Comment: [...] last revised on 2017. Testing performed by: [facility], [address] [place] [address]., [address] Triglycerides 200(H) <=149 mg/dL [facility] Comment: Interpretive Data Ages < or = [...] last revised on 2017. Testing performed by: [address] [address] HDL 39(L) >=40 mg/dL [facility] Comment: Interpretive [...] last revised on 2017. Testing performed by: [address] [address] LDL, calculated 137(H) <=129 mg/dL [facility] Comment: [...] last revised on 2023. Testing performed by: [address] [address] Non-HDL Cholesterol 173 mg/dL [facility] Comment: Interpretive [...] last revised on 2017. Testing performed by: [address] [address] Chol/HDL ratio 5 [facility] Comment:Testing performed by : [address] [address] Blood 07/07/2024 8:57 AM CDT 07/07/2024 9:29 AM CDT Iftikhar Fuentes MD LAB BLOOD ORDERABLES Final Result [facility] [address]67 [facility] Department [place] [address] * (ABNORMAL) Basic metabolic panel (07/07/2024 8:57 AM CDT) Sodium 140 135 - 145 mmol/L Comment:Testing performed by : [address] [address] Potassium, pl 4.5 3.3 - 4.9 mmol/L [facility] Comment: Hemolyzed; Potassium value may be falsely elevated by as much as 1.0 mmol/L. Suggest redraw and reanalysis. Testing performed by: [address] [address] Chloride 102 97 - 110 mmol/L [facility] Comment:Testing performed by : [address] [address] CO2 28 22 - 32 mmol/L [facility] Comment:Testing performed by : [address] [address] Anion gap 10 2 - 15 mmol/L [facility] Comment:Testing performed by : [address] [address] BUN 20 6 - 25 mg/dL [facility] Comment:Testing performed by : [address] [address] Creatinine 1.37(H) 0.80 - 1.30 mg/dL [facility] Comment:Testing performed by : [address] [address] Glucose 98 70 - 199 mg/dL [facility] [...] was last revised 2022. Testing performed by: [address] [address] Calcium 9.7 8.5 - 10.3 mg/dL [facility] Comment:Testing performed by : [address] [address] Blood 07/07/2024 8:57 AM CDT 07/07/2024 9:29 AM CDT us Iftikhar Fuentes MD LAB BLOOD ORDERABLES Final Result [facility] [address] [facility] Department [place] [address] * Troponin T high-sensitivity 6-hour (07/07/2024 7:52 AM CDT) Trop T hs <6 <=22 ng/L Comment: Interpretive Data For further hscTnT resources including the diagnostic algorithm and an aid in interpretation, copy and paste this link: https://nrl.testcatalog.org/show/hsTrop Current Interpretive Data last revised 2020. Testing performed by: [address] [address] Trop T hs delta See Comment ng/L [facility] Comment: Inappropriate collection time to report a delta. Testing performed by: [address] [address] Trop T hs pct delta See Comment % [facility] Comment: Inappropriate collection time to report a delta. Testing performed by: [address] [address] Trop T hs interp See Comment [facility] OCTA Comment: Inappropriate collection time to report a delta. Testing performed by: [address] [address] Blood 07/07/2024 7:52 AM CDT 07/07/2024 9:29 AM CDT us Dallas Hernandez DO LAB BLOOD ORDERABLES Final Res ult [facility] [address] [facility] [place] [address] * Troponin T high-sensitivity 4-hour (07/07/2024 4:13 AM CDT) Trop T hs <6 <=22 ng/L Comment: Interpretive Data For further hscTnT resources including the diagnostic algorithm and an aid in interpretation, copy and paste this link: https://nrl.testcatalog.org/show/hsTrop Current Interpretive Data last revised 2020. Testing performed by: [address] [address] Trop T hs delta 0 ng/L [facility] Comment:Testing performed by : [address] [address] Trop T hs interp Insignificant [facility] Comment:Testing performed by : [address] [address] Blood 07/07/2024 4:13 AM CDT 07/07/2024 4:26 AM CDT Dallas Hernandez DO LAB BLOOD ORDERABLES Final Res ult Performing Organization Address [facility] Co de Phone Number [facility] [place] [employer] [place] [address] * Troponin T high-sensitivity 2-hour (07/07/2024 2:18 AM CDT) Trop T hs <6 <=22 ng/L Comment: Interpretive Data For further hscTnT resources including the diagnostic algorithm and an aid in interpretation, copy and paste this link: https://nrl.testcatalog.org/show/hsTrop Current Interpretive Data last revised 2020. Testing performed by: [address] [address] Trop T hs delta 0 ng/L [facility] Comment:Testing performed by : [address] [address] Trop T hs interp Insignificant [facility] Comment:Testing performed by : [address] [address] Blood 07/07/2024 2:18 AM CDT 07/07/2024 2:22 AM CDT Dallas Hernandez DO LAB BLOOD ORDERABLES Final Res ult Performing Organization Address [facility] Co de Phone Number [facility] [place] [place] [address] * D-dimer, quantitative (07/07/2024 2:18 AM CDT) [...] 68, VTE cut-off 680 ng/ml FEU. References; Schouten HT et al. Brit Med J. 2013;346:f2492. Kimi et al. Annals Int Med. 2015;163:701-11. Current interpretive data was last revised on 2019. Testing performed by: [facility], [address] [place] [address], [place]., [address] Blood 07/07/2024 2:18 AM CDT 07/07/2024 2:22 AM CDT us Dallas Mary DO LAB BLOOD ORDERABLES Final Res ult [facility] [address] [facility] Department [place] [address] * XR Chest 1 Vw Portable (if [...] recent echo, scheduled for heart cath Sunday. 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 Pt states his father was 53 and grandfather was 49 when of [place]. TECHNIQUE: 1 radiographic view(s) of the chest. COMPARISON: None FINDINGS: LUNGS: No focal opacity, pleural effusion, or pneumothorax. HEART/MEDIASTINUM: Cardiac silhouette normal in size. Mediastinal and hilar contours appear normal. LINES/TUBES: None. BONES: No acute osseous abnormality. IMPRESSION: No acute cardiopulmonary abnormality. THIS IS AN ELECTRONICALLY VERIFIED FINAL REPORT 07/07/2024 1:11 AM - Electronically signed by Taran Manzo M.D. KT: HOLGER Report ID: [id number] Reading Location: [id number] Procedure Note Taran Manzo MD - 07/07/2024 EXAM DESCRIPTION: XR CHEST 1 VIEW REASON FOR STUDY: chest pain Pt ambulates to triage with c/o left sided chest pain radiating into leftarm and up into left jaw and neck with sob, dizziness and sweating. Pt hadrecent echo, scheduled for heart cath Sunday. 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 Pt states his father was 53 and grandfather was 49 when of [place]. TECHNIQUE: 1 radiographic view(s) of the chest. COMPARISON: None FINDINGS: LUNGS: No focal opacity, pleural effusion, or pneumothorax. HEART/MEDIASTINUM: Cardiac silhouette normal in size. Mediastinal andhilar contours appear normal. LINES/TUBES: None. BONES: No acute osseous abnormality. IMPRESSION: No acute cardiopulmonary abnormality. THIS IS AN ELECTRONICALLY VERIFIED FINAL REPORT 07/07/2024 1:11 AM - Electronically signed by Taran Manzo M.D. KT: HOLGER Report ID: [id number] Reading Location: [id number] us Dallas Hernandez DO IMG XR PROCEDURES Final Result * Troponin T high-sensitivity series (baseline, 2hr, 4hr, 6hr) (07/07/2024 12:41 AM CDT) Trop T hs <6 <=22 ng/L Comment: Interpretive Data For further hscTnT resources including the diagnostic algorithm and an aid in interpretation, copy and paste this link: https://nrl.testcatalog.org/show/hsTrop Current Interpretive Data last revised 2020. Testing performed by: [facility], [address] [place] [address], [place]., [address] Blood 07/07/2024 12:4 1 AM CDT 07/07/2024 1:04 AM CDT us Dallas Hernandez DO LAB BLOOD ORDERABLES Final Res ult [facility] [address] [facility] Department [place] [address] * (ABNORMAL) eGFR (07/07/2024 12:41 AM CDT) Pathologist [facility] eGFR 58(L) >=60 mL/min/1. 73 m2 Comment: [...] was last reviewed 2021. Testing performed by: [address] [address] Blood 07/07/2024 12:4 1 AM CDT 07/07/2024 1:04 AM CDT us Dallas Hernandez DO LAB BLOOD ORDERABLES Final Res ult [place] [address]29050 [facility] Department [place] [address] * (ABNORMAL) Differential, auto (07/07/2024 12:41 AM CDT) [facility] Neutrophil abs 4.39 1.50 - 6.50 K/cumm Comment:Testing performed by : [address] [address] Imm gran abs 0.02 0.00 - 0.10 K/cumm [facility] Comment:Testing performed by : [address] [address] Lymphocyte abs 3.36(H) 0.80 - 3.30 K/cumm CERNER Comment:Testing performed by : [address] [address] Monocyte abs 0.70 0.20 - 0.80 K/cumm [facility] Comment:Testing performed by : [address] [address] Eosinophil abs 0.19 0.00 - 0.50 K/cumm [facility] Comment:Testing performed by : [address] [address] Basophil abs 0.09 0.00 - 0.10 K/cumm [facility] Comment:Testing performed by : [address] [address] Neutrophil pct 50.2 % [facility] Comment: Interpretive Data Percent cell count reference ranges are not reported, since discordance with absolute values may lead to misinterpretation of CBC data. Current Interpretive Data was last revised on 2017. Testing performed by: [address] [address] Imm gran pct 0.2 % [facility] Comment: Interpretive Data Percent cell count reference ranges are not reported, since discordance with absolute values may lead to misinterpretation of CBC data. Current Interpretive Data was last revised on 2017. Testing performed by: [address] [address] Lymphocyte pct 38.4 % [facility] Comment: Interpretive Data Percent cell count reference ranges are not reported, since discordance with absolute values may lead to misinterpretation of CBC data. Current Interpretive Data was last revised on 2017. Testing performed by: [address] [address] Monocyte pct 8.0 % C[facility] Comment: Interpretive Data Percent cell count reference ranges are not reported, since discordance with absolute values may lead to misinterpretation of CBC data. Current Interpretive Data was last revised on 2017. Testing performed by: [address] [address] Eosinophil pct 2.2 % [facility] Comment: Interpretive Data Percent cell count reference ranges are not reported, since discordance with absolute values may lead to misinterpretation of CBC data. Current Interpretive Data was last revised on 2017. Testing performed by: [address] [address] Basophil pct 1.0 % [facility] Comment: Interpretive Data Percent cell count reference ranges are not reported, since discordance with absolute values may lead to misinterpretation of CBC data. Current Interpretive Data was last revised on 2017. Testing performed by: [address] [address] Blood 07/07/2024 12:4 1 AM CDT 07/07/2024 1:04 AM CDT us Dallas Hernandez DO LAB BLOOD ORDERABLES Final Res ult [facility] [place] [address] * (ABNORMAL) CBC with auto differential (07/07/2024 12:41 AM CDT) WBC 8.75 3.80 - 9.90 K/cumm Comment:Testing performed by : [address] [address] Hgb 13.6 13.0 - 17.5 g/dL [facility] Comment:Testing performed by : [address] [address] Hct 42.3 38.9 - 50.3 % [facility] Comment:Testing performed by : [address] [address] Plt 359 150 - 400 K/cumm [facility] Comment:Testing performed by : [address] [address] MPV 11.3 9.1 - 12.3 fL [facility] Comment:Testing performed by : [address] [address] RBC 4.92 4.30 - 5.80 M/cumm [facility] Comment:Testing performed by : [address] [address] MCV 86.0 81.3 - 96.4 fL [facility] Comment:Testing performed by : [address] [address] MCH 27.6 27.1 - 33.3 pg [facility] Comment:Testing performed by : [address] [address] MCHC 32.2(L) 32.3 - 35.7 g/dL [facility] Comment:Testing performed by : [address], [address] RDW CV 13.1 11.1 - 14.9 % [facility] Comment:Testing performed by : [address] [address] RDW SD 39.9 35.7 - 48.1 fL [facility] Comment:Testing performed by : [address] [address] NRBC abs 0.00 0.00 - 0.01 K/cumm [facility] Comment:Testing performed by : [address] [address] Blood Venous blood specimen / Unknown 07/07/2024 12:41 AM CDT 07/07/2024 1:04 AM CDT us Dallas Hernandez DO LAB BLOOD ORDERABLES Final Res ult [facility] [address] [facility] Department [place] [address] * (ABNORMAL) Comprehensive metabolic panel (07/07/2024 12:41 AM CDT) Sodium 140 135 - 145 mmol/L Comment:Testing performed by : [address] [address] Potassium, pl 3.7 3.3 - 4.9 mmol/L [facility] Comment:Testing performed by : [address], [address] Chloride 101 97 - 110 mmol/L [facility] Comment:Testing performed by : [address], [place]., [address] CO2 30 22 - 32 mmol/L [facility] Comment:Testing performed by : [address] [address] Anion gap 9 2 - 15 mmol/L [facility] Comment:Testing performed by : [address], [place]., [address] BUN 18 6 - 25 mg/dL [facility] Comment:Testing performed by : [address], [place]., [address] Creatinine 1.45(H) 0.80 - 1.30 mg/dL [facility] Comment:Testing performed by : [address], [place]., [address] Glucose 114 70 - 199 mg/dL [facility] [...] was last revised 2022. Testing performed by: [address] [address] Calcium 9.7 8.5 - 10.3 mg/dL [facility] Comment:Testing performed by : [address] [address] Bilirubin, total 0.3 0.1 - 1.2 mg/dL [facility] Comment:Testing performed by : [address] [address] Protein, pl 7.6 6.5 - 8.5 g/dL [facility] Comment:Testing performed by : [address] [address] Albumin 4.5 3.5 - 5.0 g/dL [facility] Comment:Testing performed by : [address] [address] Alk phos 100 40 - 130 Units/L [facility] Comment:Testing performed by : [facility], [address] [place] [address]., [address] ALT 27 7 - 55 Units/L [facility] Comment:Testing performed by : [facility], [address] [place] [address]., [address] AST 27 10 - 50 Units/L [facility] Comment:Testing performed by : [address], [address] Blood 07/07/2024 12:4 1 AM CDT 07/07/2024 1:04 AM CDT Dallas Hernandez DO LAB BLOOD ORDERABLES Final Res ult [facility] [address] [facility] Department [place] [address] * ECG 12 lead (07/07/2024 12:36 AM CDT) Ventricular Rate EKG/Min 75 BPM [facility] Atrial Rate 75 BPM [facility] FL-Interval (MSEC) 160 ms [facility] QRS-Interval (MSEC) 92 ms [facility] QT-Interval (MSEC) 378 ms [facility] QTc 422 ms [facility] P [place] 23 degrees [facility] R [place] -20 degrees [facility] T [place] 17 degrees [facility] Diagnosis Normal sinus rhythm Normal ECG No previous ECGs available Confirmed by SULTAN TRAN M.D. ([id number]) on 07/07/2024 2:50:23 PM [facility] 07/07/2024 12:3 6 AM CDT 07/07/2024 2:50 PM CDT Dallas Hernandez DO ECG ORDERABLES Final Result [facility] from Last 3 Months Insurance BLUE ACCESS DE BLUE ACCESS DE BLUE ACCESS DE Advance Directives For more information, please contact: [phone] * Full Code (Latest Code Status on File) Date Activated Date Inactivated Comments 07/07/2024 2:29 PM 07/07/2024 7:16 PM * Full Code Date Activated Date Inactivated Comments 07/07/2024 4:58 AM 07/07/2024 2:29 PM Care Teams Rcis Relationship Specialty Start Date End Date Willie Savage DO [address] [place] [address] PCP - General Family Medicine 07/14/24 Willie Fox MD [address] [place] [address] Family Medicine 06/26/24
[2024-09-04 08:58] LABS: Estimated Glomerular Filt Rate 53
== END 2024-09-04 08:01 | disposition home or self-care (01) ==
PROVIDERS: PCP Family Medicine; Visit Provider Nurse Practitioner Family
DX: K62.5 Hemorrhage of anus and rectum (principal); M53.3 Sacrococcygeal disorders, not elsewhere classified; K59.00 Constipation, unspecified; N40.0 Benign prostatic hyperplasia without lower urinary tract symptoms
CPT/HCPCS: 74177; Q9967

== ENCOUNTER 2024-10-23 03:14 | Day surgery (SDC) | payer BC, SELFPAY ==
[2024-10-08 14:12] VITALS: BMI 28.8
--- OUTSIDE RECORDS SUMMARY | 2024-10-23 03:17 | XMS_ITS | Clinical Summary ---
Author Organization [facility], [place] Address [address] [place] [address] Care Team Providers Care Coal Digger Name Role Phone Willie Fox MD Unavailable [phone] Willie Savage DO Primary Care Provider + Allergies Active Allergy Reactions Criticality Noted Date Comments Penicillin V Stomach upset Low 05/23/2019 Penicillins Vomiting Low 06/18/2024 Tetracycline Stomach upset Low 05/23/2019 Medications amitriptyline (ELAVIL) 25 mg tablet Take 1 tablet (25 mg total) by mouth nightly 09/22/19 20 Active fluticasone propionate (FLONASE) 50 mcg/actuation nasal spray Administer 1 spray into affected nostril(s) daily 05/08/19 20 Active azelastine 205.5 mcg (0.15 %) spray,non-aero jamison 205.5 mcg 2 (two) times a day Active losartan (COZAAR) 25 mg tablet Take 1 tablet (25 mg total) by mouth daily 30 tablet 1 07/08/19 25 Active atorvastatin (LIPITOR) 40 mg tablet Take 1 tablet (40 mg total) by mouth daily 30 tablet 1 07/09/[address] (PROTONIX) 40 mg EC tabletIndicati ons:Laryngopha ryngeal reflux (LPR) TAKE 1 TABLET BY MOUTH TWICE DAILY BEFORE BREAKFAST AND BEFORE SUPPER 60 tablet 10/07/[address] (PROTONIX) 40 mg EC tabletIndicati ons:Laryngopha ryngeal reflux (LPR) Take 1 tablet (40 mg total) by mouth 2 (two) times a day before breakfast and dinner 60 tablet 3 06/13/19 025 Discontinued Active Problems Problem Noted Date Diagnosed Date Chest pain 07/07/2024 Hypertension 07/07/2024 Other forms of dyspnea 07/07/2024 Exercise-induced angina 06/18/2024 Laryngopharyngeal reflux (LPR) 06/15/2024 Wheezing 06/15/2024 Dizziness and giddiness 10/15/2019 Encounters Date Type Department Care Team Description 08/01/2024 6:51 AM CDT - 08/01/2024 11:59 PM CDT Hospital Encounter [facility] Respiratory Therapy [address] [place] [id number] Other forms of dyspnea Discharge Disposition: Discharge to home or self care 08/01/2024 6:51 AM CDT - 08/01/2024 11:59 PM CDT Hospital Encounter [facility] CT [address] [place] [address] Other forms of dyspnea Discharge Disposition: Discharge to home or self care 07/28/2024 8:45 AM CDT Office Visit [facility] Otolaryngology [address] [place] [id number] Sudhir Bernardo II, MD Laryngopharyngeal reflux (LPR) (Primary Dx); Wheezing; Dizziness and giddiness from Last 3 Months Surgical History Surgery Date Site/Laterality Comments TONSILLECTOMY CARDIAC CATHETERIZATION 07/07/2024 N/A Procedure: LEFT HEART CATHETERIZATION WITH CORONARY ANGIOGRAPHY AND WITH OR WITHOUT LEFT VENTRICULOGRAM 12597; Surgeon: Jamila Gutierrez MD; 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; Service: Cardiovascular; Laterality: N/A; Medical History Medical [...] on file 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 Gender Identity Not on file Sexual Orientation [...] Vaccine (1 of 2) 2022 Influenza Vaccine (#1) 2024 Pneumococcal vaccine <65 Aged Out No longer eligible based on patient's age to complete this topic Procedures Procedure Name Priority Date/Time Associated Diagnosis Comments PULMONARY FUNCTION TEST (PFT) Routine 08/01/2024 10:06 AM CDT Other forms of dyspnea CTA CHEST W CONTRAST Schedule Routine, Read Routine (OP Routine) 08/01/2024 7:15 AM CDT Other forms of dyspnea from Last 3 Months Results * (ABNORMAL) Pulmonary Function Test - (08/01/2024 10:06 AM CDT) FVC PRE 4.21 4.11 - 6.46 L [facility] FEV1 PRE 3.80 3.20 - 5.00 L [facility] [id number] 90.44(A) 67.42 - 87.93 % [facility] PLJ70-25% PRE 5.48 1.95 - 5.88 L/s [facility] PEF PRE 11.58(A) 7.20 - 11.18 L/s [facility] DLCOc SB 22.60(A) 25.69 - 39.54 ml/(min*mm Hg) [facility] DLCO/VA PRE 3.88 3.19 - 5.47 ml/(min*mm Hg*L) [facility] VA 5.83(A) 7.38 - 7.38 L [facility] TLC PRE 5.85(A) 6.38 - 8.68 L [facility] VC PRE 4.31 4.16 - 6.00 L [facility] IC PRE 3.24(A) 3.72 - 3.72 L [facility] FRC PL PRE 2.61(A) 2.66 - 4.64 L [facility] ERV PRE 1.08(A) 1.36 - 1.36 L [facility] RV PRE 1.53(A) 1.61 - 2.96 L [facility] VTG 2.74 L [facility] RAW PRE 1.17(A) 3.06 - 3.06 cmH2O*s/L [facility] Anatomical Region Laterality Modality PFT 08/01/2024 7:50 [...] clinical correlation is recommended. Electronically signed, Jamie Cna MD,FCCP, [facility] Pulmonary, Critical Care and Sleep Medicine us Willie Dupont [place] DO PFT ORDERABLES Final Re sult * [...] Bell M.D. CH: JOSÉ MIGUEL Report ID: [id number] Reading Location: [id number] Procedure Note Zac Bell Jr., MD - [...] Bell M.D. CH: JOSÉ MIGUEL Report ID: [id number] Reading Location: [id number] Willie Savage DO IMG CT PROCEDURES Final Result from Last 3 Months Insurance [employer] [place] [employer] [place] Advance Directives For more information, please contact: [phone] * Full Code (Latest Code Status on File) Date Activated Date Inactivated Comments 07/07/2024 2:29 PM 07/07/2024 7:16 PM * Full Code Date Activated Date Inactivated Comments 07/07/2024 4:58 AM 07/07/2024 2:29 PM Care Teams Coal Digger Relationship Specialty Start Date End Date Willie Savage DO PCP - General Family Medicine 07/14/24 Willie Fox MD Family Medicine 06/26/24
--- OUTSIDE RECORDS SUMMARY | 2024-10-23 03:17 | XMS_ITS | Encounter Summary ---
Author Organization [facility] Address [facility] [place] [address] Care Team Providers Care Exec. Creative Director Name Role Phone Willie Fox MD Primary Care Provider [phone] Encounter Details Date Type Department Care Team (Late st Contact Info) Description 06/30/2021 [employer] Message Enc [facility], [address] [address] [employer], [facility] Provider echo results Social History Tobacco Use Types Packs/Day Years Used Date Smoking Tobacco: Never Smokeless Tobacco: Never Alcohol Use Standard Drinks/Week Comments Never 0 (1 standard drink = 0.6 oz pur e alcohol) AUDIT-C Answer Date Recorded Frequency of Alcohol Consumption Never 05/23/2019 Average Number of Drinks Not on file 020 Frequency of Binge Drinking Not on file 08/2019 Sex and Gender Information Value Date Recorded Sex Assigned at Not on file Legal Sex Male 7:32 PM CDT Gender Identity Not on file Sexual Orientation Not on file COVID-19 Exposure Response Date Recorded In the last 10 days, have yo u been in contact with someone who was confirmed or suspected to have Coronavirus/COVID-19? No / Unsure 06/29/2021 6:22 AM CDT documented as of this encounter Plan of Treatment Not on file documented as of this encounter Visit Diagnoses Not on filedocumented in this encounter Care Teams Exec. Creative Director Relationship Specialty Start Date End Date Willie Fox MD [address] [place] [id number] PCP - General FAMILY PRACTICE 09/09/19 07/13/24 documented as of this encounter
--- OUTSIDE RECORDS SUMMARY | 2024-10-23 03:17 | XMS_ITS | Clinical Summary ---
Author Organization [facility] Address [facility] [place] [address] Care Team Providers Care Card Seller Name Role Phone Unavailable Primary Care Provider Unavailabl e Allergies Active Allergy Reactions Criticality Noted Date Comments Penicillin V GI Upset 05/23/2019 Tetracycline GI Upset 05/23/2019 Medications amitriptyline 25 MG tablet Take 1 tablet by mouth daily. 11/18/1999 Active fluticasone propionate 50 MCG/ACT nasal spray 1 spray by Nasal route daily. 05/08/2019 Active omega-3 fatty acid 500 MG capsule Take 500 mg by mouth daily. Active Coenzyme Q10 (COQ-10) 50 MG Cap Take 1 capsule by mouth daily. Active hydroCHLOROthia zide 12.5 MG tablet Take 12.5 mg by mouth daily. 04/29/2021 Active tadalafil 5 MG tablet TAKE 1 TO 4 TABLETS 1 TO 2 HOURS BEFORE SEXUAL ACTIVITY 05/12/2021 Active Multiple Vitamins-Minera ls (MULTIVITAMIN ADULTS OR) Take by mouth daily. Active NON FORMULARY Take 1 tablet by mouth daily. Super Beets Active Active Problems Problem Noted Date Diagnosed Date Dizziness and giddiness 10/15/2019 Family History Medical History Relation Comments Autoimmune Disease Brother Heart Attack Father Autoimmune Disease Mother Heart Attack Paternal Grandfather Relation Status Comments Brother Father Maternal Grandfather Maternal Grandmother Mother Paternal Grandfather Paternal Grandmother Sister 1 Alive Sister 2 Alive Social History Tobacco Use Types Packs/Day Years [...] Sign Reading Time Taken Comments Blood Pressure 138/86 06/01/2021 1:48 PM CDT Pulse 121 06/01/2021 1:48 PM CDT Temperature 36.7 C (98 F) 05/23/2019 5:47 PM BATTALION CHIEF Respiratory Rate 18 05/23/2019 9:27 PM BATTALION CHIEF Oxygen Saturation 97% 06/01/2021 1:48 PM CDT Inhaled Oxygen Concentration - - Weight 95.7 kg (211 lb) 06/01/2021 1:48 PM CDT Height 182.9 cm (6') 06/01/2021 1:48 PM CDT Body Mass Index 28.62 06/01/2021 1:48 PM CDT Plan of Treatment Health Maintenance Due Date Last Done Comments Colorectal Cancer Screening Colonoscopy (10 Years) 1972 Annual Physical 09/25/1975 Hepatitis C 1990 Hepatitis B Vaccines (1 of 3 - 19+ 3-dose series) 09/25/1991 DTaP, Tdap and Td Vaccines ( 1 - Tdap) 09/07/2015 09/06/2015 Pneumococcal Vaccine: 50+ Ye ars (1 of 1 - PCV) 2022 Zoster Vaccines (1 of 2) 2022 COVID-19 Vaccine (2 - 2023-2 5 season) 2023 07/30/2020 Meningococcal B Vaccine Aged Out No l onger eligible based on patient's age to complete this topic Meningococcal Vaccine Aged Out No kiki abdulkadir eligible based on patient's age to complete this topic RSV Immunizations Under 20 Months Aged Out No longer eligible based on patient's age to complete this topic Insurance [facility]
--- OUTSIDE RECORDS SUMMARY | 2024-10-23 03:17 | XMS_ITS | Encounter Summary ---
Author Organization [facility] Address [facility] [place] [address] Care Team Providers Care Fleet Administrative Assistant Name Role Phone Willie Fox MD Primary Care Provider [phone] Encounter Details Date Type Department Care Team (Late st Contact Info) Description 09/30/2019 Abstract [facility], [address] [address] Giles Gonsalez MA Social History Tobacco Use Types Packs/Day Years [...] Exposure Response Date Recorded In the last month, have you been in contact with someone who was confirmed or suspected to have Coronavirus / COVID-19? No / Unsure 09/25/2019 12:48 PM CDT documented as of this encounter Plan of Treatment Not on file documented as of this encounter Procedures Procedure Name Priority Date/Time Associated Diagnosis Comments CBC (OUTSIDE LAB) Routine 05/10/2019 BASIC METABOLIC PANEL Routine 05/10/2019 THYROID STIM HORMONE TSH Routine 05/10/2019 LIPID PANEL Routine 04/20/2019 documented in this encounter Results * CBC (OUTSIDE LAB) (05/10/2019) WBC 6.2 HGB 15.0 HCT 44.0 PLT 239 05/10/2019 us Doc [facility] Abstract LAB-OUTSIDE/ABSTRACTED Final Result * (ABNORMAL) BASIC METABOLIC PANEL (05/10/2019) SODIUM S/P/B 138 POTASSIUM S/P/B 4.6 CO2 28 CHLORIDE S/P/B 103 GLUCOSE 94 mg/dL CALCIUM S/P/B 9.6 BUN 17 CREATININE S/P/B 1.46(A) 0.7 - 1.3 05/10/2019 us Doc [facility] Abstract LABORATORY Final Result * THYROID STIM HORMONE, TSH (05/10/2019) TSH 0.99 05/10/2019 us Doc [facility] Abstract LABORATORY Final Result * LIPID PANEL (04/20/2019) CHOLESTEROL 172 HDL 39 TRIGLYCERIDES 77 LDL (CALCULATED) 116 04/20/2019 us Doc [facility] Abstract LABORATORY Final Result documented in this encounter Visit Diagnoses Not on filedocumented in this encounter Care Teams Fleet Administrative Assistant Relationship Specialty Start Date End Date Willie Fox MD [address] [place] [id number] PCP - General FAMILY PRACTICE 09/09/19 07/13/24 documented as of this encounter
[2024-10-23 12:31] VITALS: BP 120/75; PULSE 81; RESP 18; TEMP 36.5; O2SAT 100
[2024-10-23] MEDS: LACTATED RINGERS 1,000 ML 150 ML IV CONT (12:40)
--- NOTE | 2024-10-23 13:14 | WPDANESEPPF ---
Anes - Initial Pre Proc Eval Procedure: Operation Date: 10/23/24 14:00 Proposed Procedures p Diagnostic Colonoscopy - Howard Devine MD Date/Time: 10/23/24 13:14 Surgeon: Howard Devine MD Pre Op Diagnosis: Hemorrhage of anus and rectum Patient Data Age: 54 Gender: M Height: 1.83 m Weight: 94 kg Last Vital Signs Temp 36.5 C 10/23/24 12:31 Pulse 81 10/23/24 12:31 Resp 18 10/23/24 12:31 BP 120/75 10/23/24 12:31 Pulse Ox 100 10/23/24 12:31 O2 Del Method Room Air 10/23/24 12:31 Allergies Allergy/AdvReac Type Severity Reaction Status Date / Time cephalexin Allergy Unknown Unknown Verified 10/23/24 12:29 ciprofloxacin Allergy Unknown Unknown Verified 10/23/24 12:29 Penicillins Allergy Unknown Vomiting Verified 10/23/24 12:29 tetracycline Allergy Unknown Unknown Verified 10/23/24 12:29 Home Medications ?Medication ?Instructions ?Recorded ?Confirmed ?Type amitriptyline 25 mg tablet 25 mg PO QHS #90 tabs 08/18/24 10/23/24 Rx atorvastatin 40 mg tablet (Lipitor) 40 mg PO DAILY 08/18/24 10/23/24 History azelastine 205.5 mcg (0.15 %) 2 spray intranasal DAILY 08/18/24 10/23/24 History nasal spray fluticasone propionate 50 1 spray intranasal DAILY 08/18/24 10/23/24 History mcg/actuation nasal spray,suspension (Allergy Relief (fluticasone)) pantoprazole 40 mg tablet,delayed 40 mg PO BID #60 tabs 08/18/24 10/23/24 Rx release amlodipine 5 mg tablet 5 mg PO DAILY 10/08/24 10/23/24 History Patient hx anesthesia problems: none Family hx anesthesia problems: none Results Review: All pre-operative results and documents have been reviewed as part of the pre-operative evaluation. [facility] Past Medical History Medical History BMI 27.0-27.9,adult HTN (hypertension) Family History Family History Mother Family history of lung disease Father Patient's father is Acute myocardial infarction Other Family history of throat cancer Social History Social History Smoking status: Never smoker Alcohol intake: never Substance use: never Substance use type: does not use Living arrangements: with family Spiritual care concerns: No Anes - Eval Final PreProcedure Day of Procedure 10/23/24 13:14 Patient weight: normal Heart: regular rate and rhythm Lungs: clear to auscultation Airway: Mallampati scale class II Neurological: alert and oriented Last oral intake: >/= 8 hours ASA classification: II Emergent: no Anesthetic plan: proceed Anesthesia type and monitoring: general GIVS and standard monitoring Results Review: All pre-operative results and documents have been reviewed as part of the pre-operative evaluation. Informed Consent: The patient's anesthetic plan and its attendant risks and benefits were discussed with the patient/family/POA. Questions were solicited and answers provided to the satisfaction of the patient/family/POA.
--- NOTE | 2024-10-23 13:30 | PM.IMHP ---
H&P: HPI History of Present Illness Date/Time: 10/23/24 13:30 Chief Complaint: Rectal bleeding Narrative: the patient has been complaining of intermittent rectal bleeding, bright red tide. His last colonoscopy was 5 years ago, finding no polyps. Review of Systems Review of Systems: All systems reviewed & are unremarkable except as noted in HPI and below PMFSH Past Medical History Medical History BMI 27.0-27.9,adult HTN (hypertension) Family History Family History Mother Family history of lung disease Father Patient's father is Acute myocardial infarction Other Family history of throat cancer Social History Social History Smoking status: Never smoker Alcohol intake: never Substance use: never Substance use type: does not use Living arrangements: with family Spiritual care concerns: No Meds Home Medications and Allergies Home Medications ?Medication ?Instructions ?Recorded ?Confirmed ?Type amitriptyline 25 mg tablet 25 mg PO QHS #90 tabs 08/18/24 10/23/24 Rx atorvastatin 40 mg tablet (Lipitor) 40 mg PO DAILY 08/18/24 10/23/24 History azelastine 205.5 mcg (0.15 %) 2 spray intranasal DAILY 08/18/24 10/23/24 History nasal spray fluticasone propionate 50 1 spray intranasal DAILY 08/18/24 10/23/24 History mcg/actuation nasal spray,suspension (Allergy Relief (fluticasone)) pantoprazole 40 mg tablet,delayed 40 mg PO BID #60 tabs 08/18/24 10/23/24 Rx release amlodipine 5 mg tablet 5 mg PO DAILY 10/08/24 10/23/24 History Allergies Allergy/AdvReac Type Severity Reaction Status Date / Time cephalexin Allergy Unknown Unknown Verified 10/23/24 12:29 ciprofloxacin Allergy Unknown Unknown Verified 10/23/24 12:29 Penicillins Allergy Unknown Vomiting Verified 10/23/24 12:29 tetracycline Allergy Unknown Unknown Verified 10/23/24 12:29 Vital Signs Vital Signs - 24 hr 10/23/24 12:31 Temperature 97.7 F Pulse Rate 81 Respiratory Rate 18 Blood Pressure 120/75 Pulse Oximetry 100 Oxygen Delivery Room Air Exam Const: General: cooperative and healthy appearing Resp: Effort & Inspection: normal respiratory effort and able to speak in complete sentences Auscultation: clear to auscultation bilaterally Cardio: Rate: regular rate Rhythm: regular rhythm GI: Inspection: normal to inspection GI Palp: No No hepatosplenomegaly present Auscultation: normal bowel sounds Rectal Exam: deferred Skin: General skin exam: normal color Psych: Appearance: grossly normal Mental Status: mental status grossly normal Assessment and Plan Assessment and plan (1) Rectal bleeding: Code(s): K62.5 - Hemorrhage of anus and rectum Status: Acute Assessment and Plan: The patient is deemed a good candidate for the procedure. Consent signed. Will proceed.
[2024-10-23 13:51] VITALS: BP 107/77; PULSE 78; RESP 18; O2SAT 97
[2024-10-23 14:01] VITALS: BP 106/76; PULSE 67; RESP 18; O2SAT 99
[2024-10-23 14:11] VITALS: BP 106/70; PULSE 77; RESP 18; O2SAT 99
== END 2024-10-23 14:26 | disposition home or self-care (01) ==
PROVIDERS: PCP Family Medicine; Referring Provider Nurse Practitioner Family; Visit Provider Internal Medicine Gastroenterology
PROC: 0DJD8ZZ Inspection of Lower Intestinal Tract, Via Natural or Artificial Opening Endoscopic (ICD-10-PCS; CPT 45378; principal; 2024-10-23 14:00)
DX: K64.8 Other hemorrhoids (principal); I10 Essential (primary) hypertension; Z80.1 Family history of malignant neoplasm of trachea, bronchus and lung; Z82.49 Family history of ischemic heart disease and other diseases of the circulatory system
CPT/HCPCS: 45378; J2003; J2704; J7120

== ENCOUNTER 2025-02-02 01:51 | Day surgery (SDC) | payer BC, SELFPAY ==
[2025-01-27 16:07] VITALS: BMI 27.8
--- OUTSIDE RECORDS SUMMARY | 2025-02-02 01:54 | XMS_ITS | Encounter Summary ---
Author Organization [facility] Address [facility] [place] [address] Care Team Providers Care Green Building Materials Distributor Name Role Phone Willie Fox MD Primary Care Provider [phone] Encounter Details Date Type Department Care Team (Late st Contact Info) Description 06/30/2021 [employer] Message Enc [facility], [address] [address] [place], [facility] Provider echo results Social History Tobacco Use [...] on filedocumented in this encounter Care Teams Green Building Materials Distributor Relationship Specialty Start Date End Date Willie Fox MD [address] [place] [id number] PCP - General FAMILY PRACTICE 09/09/19 07/13/24 documented as of this encounter
--- OUTSIDE RECORDS SUMMARY | 2025-02-02 01:54 | XMS_ITS | Clinical Summary ---
Author Organization [facility] Address [facility] [place] [address] Care Team Providers Care Tree Warden Name Role Phone Unavailable Primary Care Provider [...] 36.7 C (98 F) 05/23/2019 5:47 PM RN COMPLIANCE Respiratory Rate 18 05/23/2019 9:27 PM RN COMPLIANCE Oxygen Saturation 97% 06/01/2021 1:48 PM CDT [...] of 2) 2022 COVID-19 Vaccine (2 - 2024-2 6 season) 2024 07/30/2020 Influenza Adult (#1) 2024 Hepatitis A Vaccines Aged Out No long er eligible based on patient's age to complete this topic Meningococcal B Vaccine Aged Out No l onger eligible based on patient's age to complete this topic Meningococcal Vaccine Aged Out No kiki abdulkadir eligible based on patient's age to complete this topic RSV Immunizations Under 20 Months Aged Out No longer eligible based on patient's age to complete this topic Insurance [employer]
--- OUTSIDE RECORDS SUMMARY | 2025-02-02 01:54 | XMS_ITS | Encounter Summary ---
Author Organization [facility] Address formerly [facility] [place] [address] Care Team Providers Care Manager Marketing Communication Name Role Phone Willie Fox MD Primary Care Provider [phone] Encounter Details Date Type Department Care Team (Late st Contact Info) Description 09/30/2019 Abstract [facility] at [facility], [address] [address] Giles Gonsalez MA Social History Tobacco Use [...] on filedocumented in this encounter Care Teams Manager Marketing Communication Relationship Specialty Start Date End Date Willie Fox MD [address] [place] [id number] PCP - General FAMILY PRACTICE 09/09/19 07/13/24 documented as of this encounter
--- OUTSIDE RECORDS SUMMARY | 2025-02-02 01:54 | XMS_ITS | Clinical Summary ---
Author Organization [facility] Address [address] [place] [address] Care Team Providers Care Plate Mill Hand Name Role Phone Willie Fox MD Unavailable [phone] Willie Savage DO Primary Care Provider + [...] by mouth daily 30 tablet 1 5 Active Additional Information Patient not taking.Reported on 01/26/2025 amLODIPine (NORVASC) 5 mg tablet Take by mouth daily Active atorvastatin (LIPITOR) 20 mg tablet Take 1 tablet (20 mg total) by mouth daily [address] (PROTONIX) 40 mg EC tabletIndicatio ns:Laryngophary ngeal reflux (LPR) TAKE 1 TABLET BY MOUTH TWICE DAILY BEFORE BREAKFAST AND BEFORE SUPPER 60 tablet 2 08/18/202 5 Active tadalafiL (CIALIS) 5 mg tablet Take 1 tablet (5 mg total) by mouth daily Active Active Problems Problem Noted Date Diagnosed Date Obstructive sleep apnea 01/26/2025 Assessment & Plan (01/26/2025 10:18 AM PRODUCE ASSISTANT): The oral appliance and inspire device was discussed. The patient was given an order for the oral appliance, copy of sleep study and list of dentists that makes the oral appliance. He was also given information on the inspire device. The patient will call back in to let us know if he proceeds with the oral appliance would like a referral for the inspire device. The patient was informed to use positional therapy such as elevating the head of his bed and laying on his sides until his sleep apnea is treated either with an oral appliance or the inspire device. Chest pain 07/07/2024 Hypertension 07/07/2024 Other forms of dyspnea 07/07/2024 Exercise-induced angina 06/18/2024 Laryngopharyngeal reflux (LPR) 06/15/2024 Wheezing 06/15/2024 Dizziness and giddiness 10/15/2019 Resolved Problems Problem Noted Date Diagnosed Date Resolved Date Snoring 11/06/2024 01/26/2025 Assessment & Plan (11/06/2024 10:36 AM CDT): The patient presents with snoring and dyspnea on exertion. Per his insurance, I have ordered a home sleep test and he will follow up here in 4 months. Encounters Date Type Department Care Team Description 01/26/2025 9:00 AM PRODUCE ASSISTANT Office Visit [facility] Pulmonary [place] [address] [place] [address] [address] [place] [address] Haydee Madison NP Obstructive sleep apnea (Primary Dx) 01/20/2025 Telephone [facility] Pulmonology [address] [facility] [facility] [address] [place] [address] Josue Monge MD CPAP Follow Up 01/02/2025 Telephone [facility] [address] [place] [address] Josue Monge MD Home sleep study results / cpap order 01/01/2025 7:48 AM CDT - 01/01/2025 11:59 PM CDT Hospital Encounter [facility] [address] [place] [address] Snoring Discharge Disposition: Discharge to home or self care 12/15/2024 9:15 AM CDT Office Visit [facility] Pulmonology [facility] [address] [place] [address] Lorenzo Alan MD Dyspnea on exertion (Primary Dx); Non-smoker; Other forms of dyspnea; Snoring 12/11/2024 4:15 PM CDT Telemedicine [facility] Medicine Physicians [facility] Otolaryngology [address] [place] [phone] Sudhir Bernardo II, MD Dizziness and giddiness (Primary Dx) 11/27/2024 8:00 AM CDT Procedure visit [facility] [place] [facility] Otolaryngology [address] [place] [phone] Jennifer Avery Dizziness and giddiness (Primary Dx) 11/13/2024 9:45 AM CDT - 11/13/2024 11:59 PM CDT Hospital Encounter [facility] Respiratory [address] [place] [address] Dyspnea on exertion Discharge Disposition: Discharge to home or self care 11/13/2024 9:45 AM CDT - 11/13/2024 11:59 PM CDT Hospital Encounter [facility] [address] [place] [address] Dyspnea on exertion Discharge Disposition: Discharge to home or self care 11/13/2024 9:45 AM CDT - 11/13/2024 11:59 PM CDT Hospital Encounter [facility] [address] [place] [address] Dyspnea on exertion Discharge Disposition: Discharge to home or self care 11/13/2024 Telephone [facility] Pulmonology [address] [place] [address] [place] [phone] Lorenzo Alan MD 11/06/2024 10:30 AM CDT Office Visit [address] [place] [phone] Josue Monge MD Snoring (Primary Dx) 11/05/[address] [place] [address] Josue Monge MD from Last 3 Months Surgical History Surgery Date Site/Laterality Comments TONSILLECTOMY CARDIAC CATHETERIZATION 07/07/2024 N/A Procedure: LEFT HEART CATHETERIZATION WITH CORONARY ANGIOGRAPHY AND WITH OR WITHOUT LEFT VENTRICULOGRAM [id number]; Surgeon: Jamila Gutierrez MD; Location: [facility] CARDIAC [facility] ATTENDANT; Service: Cardiovascular; Laterality: N/A; Medical History Medical [...] Date Smoking Tobacco: Never Smokeless Tobacco: Never Tobacco Cessation:Counseling Given: Not Answered AUDIT-C Answer Date Recorded Q1: How often [...] on file Legal Sex Male 1:35 AM PRODUCE ASSISTANT Gender Identity Not on file Sexual Orientation Not on file Last Filed Vital Signs Vital Sign Reading Time Taken Comments Blood Pressure 114/64 01/26/2025 8:46 AM PRODUCE ASSISTANT Pulse 88 01/26/2025 8:46 AM PRODUCE ASSISTANT Temperature 36.5 C (97.7 F) 01/26/2025 8:46 AM PRODUCE ASSISTANT Respiratory Rate 18 01/26/2025 8:46 AM PRODUCE ASSISTANT Oxygen Saturation 100% 01/26/2025 8:46 AM PRODUCE ASSISTANT Inhaled Oxygen Concentration - - Weight 95.5 kg (210 lb 8 oz) 01/26/2025 8:46 AM PRODUCE ASSISTANT Height 182.9 cm (6') 01/26/2025 8:46 AM PRODUCE ASSISTANT Body Mass Index 28.55 01/26/2025 8:46 AM PRODUCE ASSISTANT Plan of Treatment Health Maintenance Due Date [...] Procedure Name Priority Date/Time Associated Diagnosis Comments PORTABLE/HOME SLEEP STUDY Routine 01/02/2025 12:18 PM CDT Snoring PULMONARY FUNCTION TEST (PFT) Routine 11/13/2024 12:05 PM CDT Dyspnea on exertion from Last 3 Months Results * Portable/Home Sleep Study (01/02/2025 12:18 PM CDT) us Josue Monge MD SLEEP CENTER ORDERABLES F inal Result [facility] [address] [place], [place] [id number], [facility] * Pulmonary Function Test - (11/13/2024 12:05 PM CDT) Anatomical Region Laterality Modality PFT 11/13/2024 10:0 4 AM CDT Narrative 11/13/2024 2:07 PM CDT METHACHOLINE CHALLENGE TEST Tarun Welch 11/13/2024 INTERPRETATION Methacholine challenge test was performed with incremental doses of methacholine per protocol. There was not a significant decrease noted in the FEV1. IMPRESSION 1. Normal bronchial hyper-responsiveness by spirometric indices. Negative methacholine challenge test Clinical correlation recommended. Electronically signed by: Rome Hawk DO Lorenzo Alan MD PFT ORDERABLES Final Result from Last 3 Months Insurance [employer] [place] Advance Directives For more information, please contact: [phone] * Full Code (Latest Code Status on File) Date Activated Date Inactivated Comments 07/07/2024 2:29 PM 07/07/2024 7:16 PM * Full Code Date Activated Date Inactivated Comments 07/07/2024 4:58 AM 07/07/2024 2:29 PM Care Teams Plate Mill Hand Relationship Specialty Start Date End Date Willie Savage DO PCP - General Family Medicine 07/14/24 Willie Fox MD Family Medicine 06/26/24
--- OUTSIDE RECORDS SUMMARY | 2025-02-02 01:54 | XMS_ITS | Clinical Summary ---
Author Organization [facility] Address [address], [facility] [address] [place] [address] Phone Care Team Providers Care Supervisor Scenic Arts Name Role Phone Willie Savage MD Primary Care Provider + Srinivas Paulino MD Unavailable Allergies Active Allergy Reactions Criticality Noted Date Comments Penicillins Other (see Comments) 01/14/2025 Tetracycline Other (see Comments) 01/14/2025 Medications amitriptyline (ELAVIL) 25 MG Tablet Take 25 mg by mouth. 0 Active amLODIPine (NORVASC) 5 MG Tablet Take by mouth daily. Active atorvastatin (LIPITOR) 20 MG Tablet Take 20 mg by mouth daily. 5 Active pantoprazole (PROTONIX) 40 MG Tablet Delayed Response TAKE 1 TABLET BY MOUTH TWICE DAILY BEFORE BREAKFAST AND BEFORE SUPPER 5 Active Ferrex 150 150 MG Capsule Take 150 mg by mouth daily. 5 Active tadalafil (CIALIS) 5 MG Tablet Take 5 mg by mouth daily. 2 Active Active Problems No known active problems Encounters Date Type Department Care Team Description 01/14/2025 2:00 PM CDT Office Visit [facility] [address] [address] Srinivas Paulino MD Iron deficiency anemia, unspecified iron deficiency anemia type (Primary Dx); Other fatigue 01/14/2025 Travel from Last 3 Months Family History Medical History Relation Name Comments Heart Attack Father Throat Cancer Maternal Grandfather Diabetes Maternal Uncle Liver Cancer Paternal Grandmother Relation Name Status Comments Father Maternal Grandfather Maternal Uncle Paternal Grandmother Social History Tobacco Use Types Packs/Day Years Used Date Smoking Tobacco: Never Smokeless Tobacco: Never Alcohol Use Standard Drinks/Week Comments Never 0 (1 standard drink = 0.6 oz pur e alcohol) Sex and Gender Information Value Date Recorded Sex Assigned at Not on file Legal Sex Male 11:21 AM CDT Gender Identity Not on file Sexual Orientation Not on file Last Filed Vital Signs Vital Sign Reading Time Taken Comments Blood Pressure 122/88 01/14/2025 2:00 PM CDT Pulse 85 01/14/2025 2:00 PM CDT Temperature 37.2 C (98.9 F) 01/14/2025 2:00 PM CDT Respiratory Rate - - Oxygen Saturation 98% 01/14/2025 2:00 PM CDT Inhaled Oxygen Concentration - - Weight 96 kg (211 lb 9.6 oz) 01/14/2025 2:00 PM CDT Height 182.9 cm (6') 01/14/2025 2:00 PM CDT Body Mass Index 28.7 01/14/2025 2:00 PM CDT Plan of Treatment Upcoming Encounters Date Type Department Care Team (Late st Contact Info) Description 03/18/2025 11:00 AM FIRER LOCOMOTIVE Office Visit [facility] [address] [address] Srinivas Paulino MD [address] [place] [phone] Health Maintenance Due Date Last Done Comments Hepatitis C Virus (HCV) Screening 1970 TdaP Immunization 1970 Hepatitis B Immunization (1 of 3 - 19+ 3-dose series) 09/25/1991 Cologuard 2017 Colonoscopy 2017 Colorectal Cancer Screening 2017 Immunochemical Fecal Occult Blood 2017 Pneumococcal Immunization (5 0+ years) (1 of 1 - PCV) 2022 Zoster Immunization (1 of 2) 2022 Influenza Immunization (#1) 2024 SARS-COV-2 Immunization ( - 2025-26 season) 2024 Respiratory Syncytial Virus (RSV) Immunization (Adult) (1 - 1-dose 75+ series) 09/25/2047 Human Papillomavirus (HPV) Immunization Aged Out No longer eligible b ased on patient's age to complete this topic Meningococcal Immunization (ACWY) Aged Out No longer eligible based on patient's age to complete this topic Rotavirus Immunization Aged Out No lo nger eligible based on patient's age to complete this topic Insurance [facility] Care Teams Supervisor Scenic Arts Relationship Specialty Start Date End Date Willie Savage MD [address] [place] [address] [address] [place] [address] PCP - General Family Medicine 01/05/25 Srinivas Paulino MD [address] [place] [id number] Consulting Physician Oncology 01/05/25
[2025-02-02 08:02] VITALS: BP 114/68; PULSE 88; RESP 18; TEMP 36.1; O2SAT 99; BMI 28.3
[2025-02-02] MEDS: LACTATED RINGERS 1,000 ML 150 ML IV CONT (08:09)
--- NOTE | 2025-02-02 08:27 | WPDANESEPPF ---
Anes - Initial Pre Proc Eval Procedure: Operation Date: 02/02/25 09:30 Proposed Procedures p Esophagogastroduodenoscopy - Rakan Collado MD Date/Time: 02/02/25 08:27 Surgeon: Rakan Collado MD Pre Op Diagnosis: Iron deficient anemia, dysphagia Patient Data Age: 54 Gender: M Height: 1.83 m Weight: 94.8 kg Last Vital Signs Temp 36.1 C L 02/02/25 08:02 Pulse 88 02/02/25 08:02 Resp 18 02/02/25 08:02 BP 114/68 02/02/25 08:02 Pulse Ox 99 02/02/25 08:02 O2 Del Method Room Air 02/02/25 08:02 Allergies Allergy/AdvReac Type Severity Reaction Status Date / Time cephalexin Allergy Unknown Unknown Verified 02/02/25 08:02 ciprofloxacin Allergy Unknown Unknown Verified 02/02/25 08:02 Penicillins Allergy Unknown Vomiting Verified 02/02/25 08:02 tetracycline Allergy Unknown Unknown Verified 02/02/25 08:02 Home Medications ?Medication ?Instructions ?Recorded ?Confirmed ?Type fluticasone propionate 50 1 spray intranasal DAILY 08/18/24 02/02/25 History mcg/actuation nasal spray,suspension (Allergy Relief (fluticasone)) pantoprazole 40 mg tablet,delayed 40 mg PO BID #60 tabs 08/18/24 02/02/25 Rx release amlodipine 5 mg tablet 5 mg PO DAILY 10/08/24 02/02/25 History amitriptyline 25 mg tablet 12.5 mg PO QHS 01/27/25 02/02/25 History Patient hx anesthesia problems: none Family hx anesthesia problems: none Results Review: All pre-operative results and documents have been reviewed as part of the pre-operative evaluation. [facility] Past Medical History Medical History BMI 27.0-27.9,adult HTN (hypertension) Family History Family History Mother Family history of lung disease Father Patient's father is Acute myocardial infarction Other Family history of throat cancer Social History Social History Smoking status: Never smoker Substance use type: does not use Living arrangements: with family Anes - Evtoshia Final PreProcedure Day of Procedure 02/02/25 08:27 Patient weight: overweight Heart: regular rate and rhythm Lungs: clear to auscultation Airway: Mallampati scale class II Neurological: alert and oriented Last oral intake: >/= 8 hours ASA classification: II Emergent: no Anesthetic plan: proceed Anesthesia type and monitoring: general GIVS and standard monitoring Results Review: All pre-operative results and documents have been reviewed as part of the pre-operative evaluation. Informed Consent: The patient's anesthetic plan and its attendant risks and benefits were discussed with the patient/family/POA. Questions were solicited and answers provided to the satisfaction of the patient/family/POA.
--- NOTE | 2025-02-02 09:17 | PM.HPGS ---
History of Present Illness History of Present Illness Consent: Risks, benefits, and alternatives have been discussed and questions answered. Patient agrees to proceed with procedure. Chief complaint: Iron deficient anemia, dysphagia Narrative: Andriy Welch is a 54 year old male with jefry using iron pills, recent colonoscopy only hemorrhoids (noted intermittent rectal bleeding), ct scan no major findings. Here for EGD. Serology for celiac negative. Review of Systems Review of Systems: All systems reviewed & are unremarkable except as noted in HPI and below PMFSH Past Medical History Medical History BMI 27.0-27.9,adult HTN (hypertension) Family History Family History Mother Family history of lung disease Father Patient's father is Acute myocardial infarction Other Family history of throat cancer Social History Social History Smoking status: Never smoker Substance use type: does not use Living arrangements: with family Meds Home Medications and Allergies Home Medications ?Medication ?Instructions ?Recorded ?Confirmed ?Type fluticasone propionate 50 1 spray intranasal DAILY 08/18/24 02/02/25 History mcg/actuation nasal spray,suspension (Allergy Relief (fluticasone)) pantoprazole 40 mg tablet,delayed 40 mg PO BID #60 tabs 08/18/24 02/02/25 Rx release amlodipine 5 mg tablet 5 mg PO DAILY 10/08/24 02/02/25 History amitriptyline 25 mg tablet 12.5 mg PO QHS 01/27/25 02/02/25 History Allergies Allergy/AdvReac Type Severity Reaction Status Date / Time cephalexin Allergy Unknown Unknown Verified 02/02/25 08:02 ciprofloxacin Allergy Unknown Unknown Verified 02/02/25 08:02 Penicillins Allergy Unknown Vomiting Verified 02/02/25 08:02 tetracycline Allergy Unknown Unknown Verified 02/02/25 08:02 Vital Signs Vital Signs - 24 hr 02/02/25 08:02 Temperature 97 F L Pulse Rate 88 Respiratory Rate 18 Blood Pressure 114/68 Pulse Oximetry 99 Oxygen Delivery Room Air Exam Const: General: comfortable and no acute distress HENMT: Face/Nose/Sinus: Normal nares present Eyes: General: appearance normal, both eyes and all related structures Neck: Neck: no JVD Resp: Auscultation: clear to auscultation bilaterally Cardio: Rate: regular rate Rhythm: regular rhythm GI: Inspection: non-distended GI Palp: Yes Soft to palpation Skin: General skin exam: normal color Extrem: General: normal to inspection Psych: Mental Status: mental status grossly normal Assessment and Plan Assessment and plan (1) JEFRY (iron deficiency anemia): Code(s): D50.9 - Iron deficiency anemia, unspecified Status: Acute Assessment and Plan: egd- if negative then will set up capsule endoscopy already on iron (2) Rectal bleeding: Code(s): K62.5 - Hemorrhage of anus and rectum Status: Acute
--- NOTE | 2025-02-02 09:30 | S_PTH ---
PATIENT: Andriy Welch LOC: [facility] Patel#:[id number] AGE/SX: 54/M ROOM: RE02/02/[address]: Rakan Collado MD : 1970 BED: DIS: 02/02/2025 SPEC #: [id number] RECD: 02/02/25 10:10 STATUS: [place]USTIN REImani #: [id number] JANNY: 02/02/25 09:[address]: Rakan Collado DEPT: [facility] Surgical RECD BY: Vladimir Moncada ENTERED: 02/02/25 10:11 SP TYPE: Surgical OTHR DR: Willie SavageMD Tissues: A - Small Bowel Bx B - Gastric Biopsy Procedures: Hematoxylin and Eosin Stain Gross and Microscopic Level 4
[2025-02-02 09:32] VITALS: BP 106/73; PULSE 68; RESP 18; O2SAT 100
[2025-02-02 09:42] VITALS: BP 114/78; PULSE 76; RESP 18; O2SAT 100
[2025-02-02 09:51] VITALS: BP 113/75; PULSE 55; RESP 18; O2SAT 100
== END 2025-02-02 10:04 | disposition home or self-care (01) ==
PROVIDERS: PCP Family Medicine; Visit Provider Internal Medicine Gastroenterology
PROC: 0DJ08ZZ Inspection of Upper Intestinal Tract, Via Natural or Artificial Opening Endoscopic (ICD-10-PCS; CPT 43239; principal; 2025-02-02 09:30)
DX: R13.10 Dysphagia, unspecified (principal); D50.9 Iron deficiency anemia, unspecified; I10 Essential (primary) hypertension; K62.5 Hemorrhage of anus and rectum
CPT/HCPCS: 43239; 88305; J2003; J2704; J7120

== ENCOUNTER 2025-03-18 05:44 | Outpatient (CLI) | payer BC, SELFPAY ==
--- NOTE | 2025-03-03 09:21 | PC.NURSE ---
Pt called and stated he forgot to hold his Iron for procedure. Rescheduled him for 03/18/2025, reviewed times and instructions and when to hold Iron.
--- NOTE | 2025-03-18 06:42 | SUR.OPER ---
Patient brought to GI Lab. Instructions for patient undergoing Capsule Endoscopy reviewed with patient. Consent form signed. Sensor array applied to patient's abdomen and connected to recorded. Patient swallowed capsule with 2 cups of water infused with Simethicone. Patient instructed they may have clear liquids at 0830 this AM and eat or drink at 1030 this AM. Patient instructed to return to GI Lab at 1500 this afternoon for removal of recording device and to call [phone] or to return to the hospital if any nausea and vomiting or abdominal pain is experienced.
== END 2025-03-18 05:45 | disposition home or self-care (01) ==
LOC: ANHENDO 05:45
PROVIDERS: PCP Family Medicine; Referring Provider Family Medicine; Visit Provider Internal Medicine Gastroenterology
PROC: (CPT 91110; principal; 2025-03-18 07:00)
DX: Z01.818 Encounter for other preprocedural examination (principal); D64.9 Anemia, unspecified
CPT/HCPCS: 91110